=== PATIENT | female | born 1995 | race Caucasian/White ===

== ENCOUNTER 2020-05-25 13:45 | Emergency (ER) | payer OTHER, SELFPAY ==
--- NOTE | ~2020-05-25 | US_ITS ---
EXAMINATION: ULTRASOUND PELVIS, COMPLETE CLINICAL INFORMATION: Severe vaginal bleeding COMPARISON: None TECHNIQUE: Transabdominal and transvaginal imaging of the pelvic viscera performed utilizing grayscale and color Doppler technique. FINDINGS: Uterus normal in size and configuration measuring 8.0 x 3.5 x 4.7 cm. No uterine masses. Endometrial signature is homogeneous and measures 0.4 cm. Cervix contains nabothian cyst but is otherwise unremarkable. Ovaries are normal in size and appearance measuring 3.6 x 2.5 x 2.2 cm on the right and 3.3 x 2.7 x 1.9 cm on the left. No ovarian or adnexal cyst/mass. Small free fluid, normal in a female of reproductive age. US/US pelvic complete IMPRESSION: Unremarkable exam.
--- NOTE | ~2020-05-25 | US_ITS ---
EXAMINATION: ULTRASOUND PELVIS, COMPLETE CLINICAL INFORMATION: Severe vaginal bleeding COMPARISON: None TECHNIQUE: Transabdominal and transvaginal imaging of the pelvic viscera performed utilizing grayscale and color Doppler technique. FINDINGS: Uterus normal in size and configuration measuring 8.0 x 3.5 x 4.7 cm. No uterine masses. Endometrial signature is homogeneous and measures 0.4 cm. Cervix contains nabothian cyst but is otherwise unremarkable. Ovaries are normal in size and appearance measuring 3.6 x 2.5 x 2.2 cm on the right and 3.3 x 2.7 x 1.9 cm on the left. No ovarian or adnexal cyst/mass. Small free fluid, normal in a female of reproductive age. US/US transvaginal IMPRESSION: Unremarkable exam.
[2020-05-25 14:32] VITALS: BP 123/82; PULSE 98; RESP 14; TEMP 37.2; O2SAT 100; BMI 25.7
--- NOTE | 2020-05-25 14:44 | ED_ITS ---
HPI - Female Genitourinary General Chief complaint: Vaginal Bleeding Stated complaint: VAGINAL BLEEDING Time Seen by Provider: 05/25/20 14:15 Source: patient Mode of arrival: ambulatory Limitations: no limitations History of Present Illness HPI Narrative: 24-year-old female , IUD was just removed 2 weeks ago, javier de souza started to have heavy menstrual periods after IUD removal, patient has no pelvic pain or abdominal pain, not feeling dizzy, no chest pain. Patient do not expect to be today. Related Data Allergies Allergy/AdvReac Type Severity Reaction Status Date / Time No Known Allergies Allergy Unverified 11/23/19 17:44 [No Known Allergies*] Review of Systems Review of Systems: All other systems are reviewed and are negative Constitutional: Reports as per HPI and Reports no additional constitutional complaints Eyes: Reports as per HPI and Reports no additional eye complaints Reports system reviewed and no additional complaints, except as documented Cardiovascular: Reports as per HPI and Reports no additional cardiovascular complaints Respiratory: Reports as per HPI and Reports no additional respiratory complaints Gastrointestinal: Reports as per HPI and Reports no additional gastrointestinal complaints Genitourinary: Reports no additional female genitourinary complaints Musculoskeletal: Reports no additional musculoskeletal complaints Skin/Breast: Reports system reviewed and no additional complaints, except as docu Psychiatric: Reports no additional psychiatric complaints Endocrine: Reports no additional endocrine complaints Hematologic/Lymphatic: Reports no additional hematologic/lymphatic complaints Allergic/Immunologic: Reports no additional allergic/immunologic complaints Reports system reviewed and no additional complaints, except as documented and Reports Abnormal speech present [facility] Past Medical History Medical History No known health problems Social History Social History Alcohol intake: never Smoking Status: Never smoker Use of substances other than those prescribed or required for medical reasons: No Advance Directives: Yes Advance Directives Information Provided: Yes Advance Directives on File: No Physical Exam Vital Signs: Vital Signs: Last Vital Signs Temp 98.9 F 05/25/20 14:32 Pulse 81 05/25/20 16:50 Resp 18 05/25/20 16:50 BP 110/74 05/25/20 16:50 Pulse Ox 100 05/25/20 16:50 Body Mass Index 25.7 Vital signs have been reviewed as appeared to be correct. Blood pressure normal. Heart rate normal. Respiration rate normal. Temperature normal. Oxygen saturation normal. Appearance: Alert. Oriented X3. No acute distress. Head: Normal external exam. Normocephalic. Atraumatic. No Christine signs noted. No raccoon eyes noted Eyes: PERRLA. EOMI. Conjunctiva and sclera normal. Eyelids normal. ENT: TM's Normal. Pharynx normal. Uvula midline. Moist mucous membranes. No trismus noted. No drooling noted. No muffled voice noted. Neck: Normal inspection. Neck supple. FROM. No adenopathy. Thyroid Normal. No meningeal signs. No neck mass noted. CVS: Normal heart rate and rhythm. Heart sound normal. No murmurs noted. Pulses normal throughout. Respiratory: No respiratory distress. Painless inspiration. Breath sounds normal. No wheezes/rales/rhonchi noted. Chest nontender. No accessory muscle usage noted or decreased air movement noted. Abdomen: Soft and nontender. Bowel sounds normal in all 4 quadrants. No distention noted. No organomegaly noted. No visible injury noted. Pelvic exam: Few cc of Blood in the vault, no active bleeding, no blood clots, os is closed, no CMT tenderness, no adnexal mass. Back: No CVA tenderness. Full range of motion noted. Skin: Skin warm and dry. Normal skin color. Normal skin turgor. No rashes/lesions/lacerations noted. Extremities: No lower extremity edema. Extremities exhibit normal range of motion. Extremities nontender. Neuro: Oriented X 3. No motor deficit. No sensory deficit. Reflexes normal. Course Course Course Narrative: Assessment and plan. 24-year-old female was menorrhagia after took out IUD 2 weeks ago, patient hemodynamically stable, with unremarkable exam and ultrasound. Will discharge the patient to follow-up with her OBGYN doctor. MDM - Female Genitourinary Lab Data Attestation: I reviewed the patient's lab results. Result diagrams: 05/25/20 15:27 05/25/20 15:27 Labs: Lab Results 05/25/20 05/25/20 05/25/20 Range/Units 15:27 15:27 16:32 WBC 5.3 (4.8-10.8) X10*3/uL RBC 4.37 (4.20-5.50) X10*6/uL Hgb 12.5 (12.0-16.0) g/dl Hct 37.7 (37-47) % MCV 86.3 (80-98) fL MCH 28.6 (27.0-33.0) pg MCHC 33.2 (31.0-35.0) g/dl RDW 12.4 (11.0-16.0) % Plt Count 176 (160-400) X10*3/uL MPV 10.7 (9.4-12.3) fL Immature Gran % (Auto) 0.2 (0.0-0.4) % Neut % (Auto) 65.8 (45-73) % Lymph % (Auto) 23.6 (20-40) % Foster % (Auto) 8.5 (2-11) % Eos % (Auto) 1.5 (0-4) % Baso % (Auto) 0.4 (0-2) % Lymph # (Auto) 1.3 (1.2-4.9) X10*3/uL Foster # (Auto) 0.5 (0.1-1.2) X10*3/uL Eos # (Auto) 0.1 (0.0-0.4) X10*3/uL Baso # (Auto) 0.0 (0.0-0.2) X10*3/uL Abs Immat Gran (auto) 0.01 (0.00-0.03) X10*3/uL Absolute Neuts (auto) 3.5 (2.0-8.3) X10*3/uL Absolute Nucleated RBC 0.000 (0.0-0.012) X10*3/uL Nucleated RBC % (auto) 0.0 (0.0-0.2) /100WBC Sodium 138 (135-145) mmol/L Potassium 4.0 (3.3-5.1) mmol/L Chloride 104 (96-108) mmol/L Carbon Dioxide 28 (22-29) mmol/L Anion Gap 10 L (12-20) BUN 12 (9-16) mg/dL Creatinine 0.90 (0.5-1.4) mg/dL Estim Creat Clear Calc 99.7 Estimated GFR > 60 Random Glucose 71 (60-115) mg/dL Calcium 8.4 (8.4-10.2) mg/dL Urine Color PINK Urine Appearance HAZY Urine pH 6.5 (5.0-8.0) Ur Specific [place] 1.025 (1.005-1.025) Urine Protein TRACE (NEG-TRACE) MG/DL Urine Glucose (UA) NEG (NEG) MG/DL Urine Ketones NEG (NEG) MG/DL Urine Blood 3+ H (NEG) Urine Nitrite NEG (NEG) Ur Leukocyte Esterase NEG (NEG) Urine RBC 15-29 H (0) /HPF Urine WBC 0-2 (0-4) /HPF Ur Squamous Epith Cells 3+ /LPF Ur Renal Epithelial Cell TRACE /LPF Urine Bacteria NONE /LPF Urine Mucus TRACE /LPF Urine Test (NEGATIVE) 05/25/20 Range/Units 16:32 WBC (4.8-10.8) X10*3/uL RBC (4.20-5.50) X10*6/uL Hgb (12.0-16.0) g/dl Hct (37-47) % MCV (80-98) fL MCH (27.0-33.0) pg MCHC (31.0-35.0) g/dl RDW (11.0-16.0) % Plt Count (160-400) X10*3/uL MPV (9.4-12.3) fL Immature Gran % (Auto) (0.0-0.4) % Neut % (Auto) (45-73) % Lymph % (Auto) (20-40) % Foster % (Auto) (2-11) % Eos % (Auto) (0-4) % Baso % (Auto) (0-2) % Lymph # (Auto) (1.2-4.9) X10*3/uL Foster # (Auto) (0.1-1.2) X10*3/uL Eos # (Auto) (0.0-0.4) X10*3/uL Baso # (Auto) (0.0-0.2) X10*3/uL Abs Immat Gran (auto) (0.00-0.03) X10*3/uL Absolute Neuts (auto) (2.0-8.3) X10*3/uL Absolute Nucleated RBC (0.0-0.012) X10*3/uL Nucleated RBC % (auto) (0.0-0.2) /100WBC Sodium (135-145) mmol/L Potassium (3.3-5.1) mmol/L Chloride (96-108) mmol/L Carbon Dioxide (22-29) mmol/L Anion Gap (12-20) BUN (9-16) mg/dL Creatinine (0.5-1.4) mg/dL Estim Creat Clear Calc Estimated GFR Random Glucose (60-115) mg/dL Calcium (8.4-10.2) mg/dL Urine Color Urine Appearance Urine pH (5.0-8.0) Ur Specific [place] (1.005-1.025) Urine Protein (NEG-TRACE) MG/DL Urine Glucose (UA) (NEG) MG/DL Urine Ketones (NEG) MG/DL Urine Blood (NEG) Urine Nitrite (NEG) Ur Leukocyte Esterase (NEG) Urine RBC (0) /HPF Urine WBC (0-4) /HPF Ur Squamous Epith Cells /LPF Ur Renal Epithelial Cell /LPF Urine Bacteria /LPF Urine Mucus /LPF Urine Test NEGATIVE (NEGATIVE) Imaging Data Pelvic ultrasound: Radiologist's impression: Unremarkable exam. Discharge Plan Discharge Clinical Impression: Menorrhagia Patient Disposition: Home, Self-Care Instructions: Menorrhagia (ED) Referrals: Vita Winston MD [Physician] - 2 days Interventions: ED Discharge Assessment Last Done: 05/25/20 18:07 Discharge Date/Time: 05/25/20 18:07
[2020-05-25 15:34] LABS: MANUAL DIFF FLAG NO
[2020-05-25 15:35] LABS: Basophils Percent Auto 0.4 % (0-2); Eosinophils Absolute Auto 0.1 X10*3/uL (0.0-0.4); Eosinophils Percent Auto 1.5 % (0-4); Hematocrit 37.7 % (37-47); Hemoglobin 12.5 g/dl (12.0-16.0); Imm Gran Abs Auto 0.01 X10*3/uL (0.00-0.03); Imm Gran Pct Auto 0.2 % (0.0-0.4); Lymphocytes Absolute Auto 1.3 X10*3/uL (1.2-4.9); Lymphocytes Percent Auto 23.6 % (20-40); Mean Corpuscular HGB Conc 33.2 g/dl (31.0-35.0); Mean Corpuscular Hemoglobin 28.6 pg (27.0-33.0); Mean Corpuscular Volume 86.3 fL (80-98); Mean Platelet Volume 10.7 fL (9.4-12.3); Monocytes Absolute Auto 0.5 X10*3/uL (0.1-1.2); Monocytes Percent Auto 8.5 % (2-11); Neutrophils Absolute Auto 3.5 X10*3/uL (2.0-8.3); Neutrophils Percent Auto 65.8 % (45-73); Platelet Count 176 X10*3/uL (160-400); Red Blood Count 4.37 X10*6/uL (4.20-5.50); Red Cell Distribution Width 12.4 % (11.0-16.0); White Blood Count 5.3 X10*3/uL (4.8-10.8)
[2020-05-25 15:57] VITALS: BP 103/69; BP 106/65; PULSE 76; PULSE 85
[2020-05-25 16:03] LABS: Blood Urea Nitrogen 12 mg/dL (9-16); Calcium 8.4 mg/dL (8.4-10.2); Creatinine Clr Calc Pharmacy 99.7; Estimated Glomerular Filt Rate > 60; Glucose Random 71 mg/dL (60-115)
[2020-05-25 16:16] LABS: Anion Gap 10 (12-20); Carbon Dioxide 28 mmol/L (22-29); Chloride 104 mmol/L (96-108); Sodium 138 mmol/L (135-145)
[2020-05-25 16:44] LABS: Glucose Urine UA NEG (NEG); Leukocyte Esterase Urine NEG (NEG); Nitrite Urine NEG (NEG); PH 6.5 (5.0-8.0); Specific Gravity - Urine 1.025 (1.005-1.025); Urine Blood 3+ (NEG); Urine Ketones NEG (NEG); Urine Protein TRACE MG/DL (NEG-TRACE)
[2020-05-25 16:46] LABS: Appearance Urine HAZY; Color Urine PINK
[2020-05-25 16:49] LABS: UPreg QC Valid YES; Urine Pregnancy NEGATIVE (NEGATIVE)
[2020-05-25 16:50] VITALS: BP 110/74; PULSE 81; RESP 18; O2SAT 100
[2020-05-25 17:03] LABS: Renal Epithelial Cells Urine TRACE /LPF; Squamous Epithelial Cell Urine 3+ /LPF; WBC Urine 0-2 /HPF (0-4)
[2020-05-25 17:04] LABS: Mucus Urine TRACE /LPF
== END 2020-05-25 18:07 | disposition home or self-care (01) ==
PROVIDERS: Emergency Provider Emergency Medicine
DX: N92.0 Excessive and frequent menstruation with regular cycle (principal)
CPT/HCPCS: 36415; 76830; 76856; 80048; 81001; 81025; 85025; 99284

== ENCOUNTER 2020-09-12 02:46 | Emergency (ER) | payer OTHER, SELFPAY ==
[2020-09-12 02:53] VITALS: BP 117/74; PULSE 79; RESP 16; TEMP 37.2; O2SAT 97; BMI 25.0
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
== END 2020-09-12 03:15 | disposition home or self-care (01) ==
PROVIDERS: Emergency Provider Internal Medicine; PCP Physician Assistant Medical
DX: O9A.311 Physical abuse complicating pregnancy, first trimester (principal); S10.93XA Contusion of unspecified part of neck, initial encounter; S70.12XA Contusion of left thigh, initial encounter; S40.021A Contusion of right upper arm, initial encounter; Y04.2XXA Assault by strike against or bumped into by another person, initial encounter; Z3A.01 Less than 8 weeks gestation of pregnancy; Y93.9 Activity, unspecified; Y92.9 Unspecified place or not applicable; Y99.9 Unspecified external cause status
CPT/HCPCS: 99284

== ENCOUNTER 2021-08-09 17:36 | Emergency (ER) | payer OTHER, SELFPAY ==
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
[2021-08-09 17:47] VITALS: BP 112/82; BP 121/84; PULSE 98; RESP 20; TEMP 37.3; O2SAT 99; BMI 26.6
[2021-08-09] MEDS: Ibuprofen 600 MG TABLET PO (18:57)
[2021-08-09] MEDS: HYDROmorphone HCl 2 MG/ML VIAL IM (19:28)
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
[2021-08-09 20:53] LABS: Influenza A PCR NEGATIVE (Negative); Influenza B PCR NEGATIVE (Negative); Resp Syncy Virus RNA Qual PCR NEGATIVE (Negative); SARS COV2 PCR INHOUSE NEGATIVE (Negative)
== END 2021-08-09 22:32 | disposition home or self-care (01) ==
PROVIDERS: Emergency Provider Emergency Medicine
DX: S52.92XA Unspecified fracture of left forearm, initial encounter for closed fracture (principal); S09.90XA Unspecified injury of head, initial encounter; S40.022A Contusion of left upper arm, initial encounter; M79.632 Pain in left forearm; R51.9 Headache, unspecified; M54.2 Cervicalgia; M25.532 Pain in left wrist; V49.40XA Driver injured in collision with unspecified motor vehicles in traffic accident, initial encounter; Y93.9 Activity, unspecified; Y92.410 Unspecified street and highway as the place of occurrence of the external cause; Y99.0 Civilian activity done for income or pay; Z20.822 Contact with and (suspected) exposure to COVID-19; Z79.899 Other long term (current) drug therapy
CPT/HCPCS: 0241U; 70450; 72125; 73090; 73100; 73120; 96372; 99282; 99284; J1170

== ENCOUNTER 2021-08-12 09:04 | Outpatient (REF) | payer OTHER, SELFPAY ==
--- NOTE | ~2021-08-12 | XR_ITS ---
EXAMINATION: XR ELBOW, LEFT CLINICAL INFORMATION: Pain. COMPARISON: Radiograph of the left forearm dated from 08/09/2021. TECHNIQUE: AP, lateral, and oblique views of the left elbow. FINDINGS: Limited evaluation of the lateral view due to incomplete flexion. No acute fractures or malalignment. No significant soft tissue abnormality. XR/XR elbow LT min 3V IMPRESSION: Limited lateral view. However, accounting for these limitations, no significant abnormality is identified.
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
== END 2021-08-12 09:05 | disposition home or self-care (01) ==
LOC: HO.HOSX 09:04
PROVIDERS: Visit Provider Orthopaedic Surgery
DX: S52.502A Unspecified fracture of the lower end of left radius, initial encounter for closed fracture (principal); M25.522 Pain in left elbow; G56.02 Carpal tunnel syndrome, left upper limb; V49.9XXA Car occupant (driver) (passenger) injured in unspecified traffic accident, initial encounter; Y93.9 Activity, unspecified; Y92.410 Unspecified street and highway as the place of occurrence of the external cause; Y99.0 Civilian activity done for income or pay
CPT/HCPCS: 73080; 73110; 99202

== ENCOUNTER → 2021-08-13 09:18 | Outpatient (BNVA) | payer OTHER, SELFPAY | PROVIDERS: Visit Provider Physician Assistant | DX: F07.81 Postconcussional syndrome (principal); M54.2 Cervicalgia; S52.92XA Unspecified fracture of left forearm, initial encounter for closed fracture; S70.12XA Contusion of left thigh, initial encounter; V89.2XXA Person injured in unspecified motor-vehicle accident, traffic, initial encounter | CPT/HCPCS: 99204 ==

== ENCOUNTER 2021-08-14 06:00 | Day surgery (SDC) | payer OTHER, SELFPAY ==
--- NOTE | 2021-08-13 08:49 | HO.ANESPROP2 ---
Documented by User: Jaimie Allen NP 08/13/21 08:50 HPI - Anesthesia Eval Consult details Narrative: 25yo F for Left Radius Distal Fracture ORIF, Carpal Tunnel Release PMFSH Active Problems Active Problems: All Active Problems (Updated 08/12/21 @ 15:52 by Autumn Vincent MD) Acute carpal tunnel syndrome of left wrist (Acute) Distal radius fracture, left (Acute) Past Medical History Medical History No known health problems Surgical History Surgical History (Updated 08/14/21 @ 06:20 by Keely Palomares RN) History of abdominal surgery History of breast augmentation History of eye surgery History of lumpectomy Hx of wisdom tooth extraction Social History Social History Alcohol intake: never Patient Tobacco Use Status: Never used Tobacco Meds Allergies Allergy/AdvReac Type Severity Reaction Status Date / Time No Known Allergies Allergy Verified 08/12/21 14:09 [No Known Allergies*] Exam Exam Date and Time: August 13, 2021 0849 Assessment and Plan Assessment Anesthesia Assessment: Chart Reviewed Documented by User: Maicol Ellis MD 08/14/21 16:34 PMFSH Past Medical History Medical History No known health problems Family History Family history of problems with anesthesia: No Surgical History Surgical History (Updated 08/14/21 @ 06:20 by Keely Palomares RN) History of abdominal surgery History of breast augmentation History of eye surgery History of lumpectomy Hx of wisdom tooth extraction History of Problems with Anesthesia: No Social History Social History Alcohol intake: never Patient Tobacco Use Status: Never used Tobacco Meds Allergies Allergy/AdvReac Type Severity Reaction Status Date / Time No Known Allergies Allergy Verified 08/12/21 14:09 [No Known Allergies*] Exam Airway Mallampati Class: II TM Dist: >3cm Neck ROM: Full Loose/Missing/Broken Teeth: Yes Heart: S1,S2 Lungs: b/l breath sounds Assessment and Plan Assessment Anesthesia Assessment: Anesthesia Plan Discussed Final Anesthetic Review Family History of Problems with Anesthesia: No History of Problems with Anesthesia: No NPO: Yes ASA Class: I Final Preanesthetic Review: Meds/Allgs Chart Reviewed, Consent Obtained/Reviewed and Anes Risks/Benef Reviewed Patient Risk: Intermediate Procedure Risk: Intermediate Anesthetic Plan Anesthetic Plan: GA and Regional Block Disposition: Standard PACU
[2021-08-14] VITALS (9 sets, daily range): BP systolic 105–136; BP diastolic 63–79; PULSE 62–88; RESP 10–17; TEMP 36.6–37.7; O2SAT 93–98; BMI 26.6
--- NOTE | ~2021-08-14 | FL_ITS ---
EXAMINATION: XR FLUOROSCOPY WITH IMAGES CLINICAL INFORMATION: OR internal fixation distal radius. COMPARISON: 08/12/2021 TECHNIQUE: Fluoroscopy performed by Dr. Autumn Vincent. Fluoroscopy time: 50.48 minutes DAP: 1.14 mGycm2 Images: 8 FINDINGS: Images demonstrate plate and screw fixation for intra-articular fracture of the distal left wrist. There appears be some improvement of radiocarpal joint angulation with what appears be neutral angulation at this time. Minimally displaced radial styloid fracture seen. Avulsion injury of the distal ulnar styloid is seen. FL/FL guidance in OR IMPRESSION: Intraoperative fluoroscopy used for OR internal fixation of comminuted distal right radial and ulnar styloid fracture.
[2021-08-14 06:20] LABS: UPreg QC Valid YES; Urine Pregnancy NEGATIVE (NEGATIVE)
[2021-08-14] MEDS: Lactated Ringers 1,000 ML 100 ML IVCONT (06:48)
--- NOTE | 2021-08-14 07:47 | MHC.SHP ---
Pre-Procedural Eval Section A Date of Service: 08/14/21 The patient is an INPATIENT: No Changes since office visit: No Cold of Flu in the past 2 weeks, No New Medical Problems, No Changes in Medication and No Patient answered all questions The History & Physical has been completed within 30 days and I have reviewed it.: Yes Section B Chief Complaint: Carpal tunnel syndrome, distal radius fracture Allergies: Allergies Allergy/AdvReac Type Severity Reaction Status Date / Time No Known Allergies Allergy Verified 08/12/21 14:09 [No Known Allergies*] Plan I have reviewed the history and physical and performed a pertinent physical examination on my patient. No changes have occurred unless specified.
--- NOTE | 2021-08-14 07:48 | P.OP_ITS ---
Operative Note Operative Note Date of Service: 08/14/21 Narrative: Operative Note Narrative: Preop diagnosis: Left Distal radius fracture, comminuted intra-articular Postop diagnosis: Same Procedure: Left Distal radius fracture open reduction internal fixation, 3 part Surgeon: Autumn Vincent MD Anesthesia: General anesthesia plus regional block Findings: Comminuted intra-articular distal radius fracture Implants: A 3 hole Accu Med volar locking plate, with 5x 2.3 mm locking pegs/screws, and 3 3.5 mm cortical screws, 1x 0.054 k-wire Tourniquet time: 70 minutes EBL: 5.0 ml Specimen: None Drains: None Complications: None Disposition: Brought to the recovery room in stable condition Plan: Follow-up in 10-14 days for wound check, suture removal and postop radiographs Anticipate removal of K-wire at 2 week visit The patient will be placed in either a short-arm cast . Encouraged no lifting of anything heavier than a cell phone. Please encourage active and passive range of motion of the digits. Follow-up at 4-5 weeks postop for repeat radiographs. Indications: The patient is a 25 year old woman with a comminuted intra- articular distal radius fracture . The risks and benefits of operative treatment, including but not limited to risk of damage to blood vessels, nerves, tendons, infection, recurrence, persistent pain or numbness, incomplete resolution of preoperative symptoms, or need for further surgery were discussed with the patient and they wished to proceed with surgery. Procedure: Once consent was obtained patient was brought back to the operating suite and placed in the operating table in a supine position. A regional block was performed by the anesthesia team. Perioperative antibiotics and anesthesia was administered by the anesthesia team. A tourniquet was applied to the proximal aspect of the left upper extremity and the limb was prepped and draped in a standard surgical fashion. The limb was elevated exsanguinated with Esmarch bandage and the tourniquet inflated to 250 mm of mercury for a total tourniquet time of 70 minutes. The FluoroScan was used throughout the case to assess our reduction, and facilitate implant placement. A gentle closed reduction was 1st performed on the patient's left distal radius fracture. Was assessed radiographically before proceeding with the reduction internal fixation. I then made an 8 cm longitudinal incision over the distal aspect of the flexor carpi radialis tendon. The incision was made through the skin to the subcutaneous tissue using a 15. Blade. Then carefully dissected down to flexor carpi radialis tendon she tenotomy scissors. The FCR tendon sheath was then incised longitudinally using tenotomy scissors under direct visualization. The FCR tendon was then retracted ulnarly. I then made a longitudinal incision in the volar forearm fascia thro ugh the floor of FCR tendon sheath using tenotomy scissors under direct visualization. I identified the interval between the radial artery and the flexor tendons. This interval was developed further with my index finger, releasing some of the muscular fibers of the flexor pollicis longus. A dull weatlander retractor was then placed. I then created an ulnarly based flap of the pronator quadratus by releasing the radial and distal edges using a 15. Blade. A [place] elevator was used to elevate the pronator quadratus from the volar surface of the distal radius. This then revealed to us our distal radius fracture. An open reduction was then performed on our distal radius fracture. I then placed a short standard 3 hole Accu Med volar locking plate on the volar surface of the distal radius. I placed a single K-wire through the distal aspect of the plate and into the distal radius. This was assessed using fluoroscopic images. I was satisfied with the placement of our plate. I then placed 5x 2.3 mm locking screws/pegs in the distal aspect of the plate and distal radius by 1st drilling bicortically with a 1.8 mm drill bit, measuring with a depth gauge, and placing the appropriate length locking screws/pegs. The placement of our plate and screws was then assessed again using fluoroscopic images. The once satisfied with the placement of the volar locking plate and screws on the distal aspect of the distal radius, the plate was then reduced to the shaft of the radius. I then placed 3 3.5 mm cortical screws to the proximal aspect of the plate and into the shaft of the radius. This was done by 1st drilling bicortically with a 2.8 mm drill bit, measuring with a depth gauge, and placing the appropriate length screw. She had a transverse fracture that was very distal creating a radial styloid fragment. I then placed a single 0.054 K-wire retrograde through the tip of the radial styloid, across the fracture to the ulnar cortex of the shaft of the radius. Final radiographs were then obtained. The DRUJ was assessed and found to be stable on exam. I was satisfied with our reduction and placement of all implants. At this point the wound was irrigated with normal saline. The pronator quadratus was reduced back over the volar locking plate using some 3-0 Vicryl suture material. The tourniquet was then deflated and hemostasis was obtained with a brief period of local pressure and bipolar monopolar electrocautery. The subcutaneous layer was then reapproximated using some 4-0 Vicryl suture, and the skin edges were reapproximated using some 5 0 Prolene suture. The wound was then infiltrated with some 1% lidocaine with epinephrine postop pain control. A sterile dressing and a short dorsal splint allowing for active flexion and extension of the digits was applied. The patient appears to have tolerated the procedure well and with no complications. All digits were well vascularized conclusion of the case.
[2021-08-14] MEDS: oxyCODONE HCl Immed Release 5 MG TABLET PO (11:22)
--- NOTE | 2021-08-14 15:10 | W.PM.OPN ---
Operative Note Operative Note Date of Service: 08/14/21
== END 2021-08-14 12:53 | disposition home or self-care (01) ==
PROVIDERS: Nurse Practitioner; Visit Provider Orthopaedic Surgery
PROC: (CPT 25609; principal; 2021-08-14 07:30)
PROC: (CPT 64721; 2021-08-14 07:30)
DX: S52.572A Other intraarticular fracture of lower end of left radius, initial encounter for closed fracture (principal); G56.02 Carpal tunnel syndrome, left upper limb; V89.2XXA Person injured in unspecified motor-vehicle accident, traffic, initial encounter; Y93.89 Activity, other specified; Y92.89 Other specified places as the place of occurrence of the external cause; Y99.0 Civilian activity done for income or pay
CPT/HCPCS: 25609; 64721; 81025; C1713; C1769; J0690; J1100; J1885; J2250; J2405; J2550; J2795; J3010

== ENCOUNTER 2021-08-27 08:26 | Outpatient (REF) | payer OTHER, SELFPAY ==
--- NOTE | ~2021-08-27 | XR_ITS ---
EXAMINATION: XR WRIST, LEFT CLINICAL INFORMATION: Left wrist pain. COMPARISON: 08/14/2021 and 08/12/2021. TECHNIQUE: PA, lateral, and oblique views of the left wrist. FINDINGS: Since the previous study, there has been intraoperative surgical repair of a comminuted intra-articular fracture of the distal left radius. Sideplate and screw fixation is present as well as a pin through the radial styloid fracture fragment and distal radius. There appears to be anatomic alignment with return of a neutral angulation of the radiocarpal joint. Nondisplaced ulnar styloid avulsion fracture evident. XR/XR wrist LT min 3V IMPRESSION: Status post intraoperative repair of intra-articular comminuted fracture of the distal left radius.
== END 2021-08-27 08:27 | disposition home or self-care (01) ==
LOC: HO.HOSX 08:26
PROVIDERS: Visit Provider Orthopaedic Surgery
DX: M25.532 Pain in left wrist (principal)
CPT/HCPCS: 73110

== ENCOUNTER 2021-09-09 09:35 | Outpatient (REF) | payer OTHER, SELFPAY ==
--- NOTE | ~2021-09-09 | XR_ITS ---
EXAMINATION: XR WRIST, LEFT CLINICAL INFORMATION: Left wrist pain. COMPARISON: 08/27/2021 and 08/12/2021 TECHNIQUE: PA, lateral, and oblique views of the left wrist. FINDINGS: Status post ORIF of a comminuted intra-articular fracture of the distal left radius. Sideplate and screw fixation is present as well as a pin through the radial styloid fracture fragment and distal radius. Alignment is unchanged. There appears to be anatomic alignment with return of a neutral angulation of the radiocarpal joint. Minimally displaced ulnar styloid avulsion fracture evident. XR/XR wrist LT min 3V IMPRESSION: Stable examination.
== END 2021-09-09 09:36 | disposition home or self-care (01) ==
LOC: HO.HOSX 09:35
PROVIDERS: Visit Provider Orthopaedic Surgery
DX: M25.532 Pain in left wrist (principal)
CPT/HCPCS: 73110

== ENCOUNTER → 2021-09-10 14:27 | Outpatient (BNVA) | payer OTHER, SELFPAY | PROVIDERS: Visit Provider Physician Assistant | DX: S16.1XXD Strain of muscle, fascia and tendon at neck level, subsequent encounter (principal); S39.012D Strain of muscle, fascia and tendon of lower back, subsequent encounter; V89.0XXD Person injured in unspecified motor-vehicle accident, nontraffic, subsequent encounter; Z47.89 Encounter for other orthopedic aftercare; Z98.1 Arthrodesis status | CPT/HCPCS: 99213 ==

== ENCOUNTER 2021-10-07 10:13 | Outpatient (REF) | payer OTHER, SELFPAY ==
--- NOTE | ~2021-10-07 | XR_ITS ---
EXAMINATION: XR WRIST, LEFT CLINICAL INFORMATION: Pain in left wrist. COMPARISON: Left wrist 09/09/2021. TECHNIQUE: PA, lateral, and oblique views of the left wrist. FINDINGS: There is a volar plate and screws stabilizing an old distal radial fracture. A solitary pin seen previously along the distal radius has been removed. No acute fracture is seen. There is diffuse osteopenia. The soft tissues are unremarkable. XR/XR wrist LT min 3V IMPRESSION: No change in the volar plate and screws along the distal radius from the healing fracture. The solitary pin seen in the distal radius has been removed. There is diffuse osteopenia. No soft tissue swelling is seen.
== END 2021-10-07 10:14 | disposition home or self-care (01) ==
LOC: HO.HOSX 10:13
PROVIDERS: Visit Provider Orthopaedic Surgery
DX: S52.502A Unspecified fracture of the lower end of left radius, initial encounter for closed fracture (principal); M25.632 Stiffness of left wrist, not elsewhere classified; G56.02 Carpal tunnel syndrome, left upper limb
CPT/HCPCS: 73110; 99212

== ENCOUNTER → 2021-11-05 11:19 | Outpatient (BNVA) | payer OTHER, SELFPAY | PROVIDERS: Visit Provider Physician Assistant | DX: F07.81 Postconcussional syndrome (principal); R51.9 Headache, unspecified; M54.2 Cervicalgia; M54.9 Dorsalgia, unspecified | CPT/HCPCS: 99214 ==

== ENCOUNTER → 2021-11-12 14:52 | Outpatient (BNVA) | payer OTHER, SELFPAY | PROVIDERS: Visit Provider Orthopaedic Surgery | DX: S52.502D Unspecified fracture of the lower end of left radius, subsequent encounter for closed fracture with routine healing (principal); M25.632 Stiffness of left wrist, not elsewhere classified | CPT/HCPCS: 99212 ==

== ENCOUNTER 2021-11-26 14:24 | Outpatient (REF) | payer OTHER, SELFPAY ==
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
== END 2021-11-26 14:25 | disposition home or self-care (01) ==
LOC: HO.MRI 14:24
PROVIDERS: Visit Provider Internal Medicine
DX: M54.50 Low back pain, unspecified (principal); M54.2 Cervicalgia
CPT/HCPCS: 72141; 72148

== ENCOUNTER 2021-12-01 11:00 | Outpatient (RCR) | payer OTHER, SELFPAY ==
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
--- NOTE | 2022-01-16 10:29 | MHC.PT.DC ---
[facility] [place] Office [place] Office [place] Office [address] Jose Miguel Contreras [address] [phone] F: [phone] F: [phone] F: [phone] F: [phone] Physical Therapy Discharge Report Diagnosis: cervical strain, L leg hematoma Date of Surgery: Date of Evaluation: 09/04/21 Date of Discharge: 01/16/22 Treatments to Date: 11 Cancellations to Date: 0 No Shows to Date: 0 Discharge Status: Improved Function Independent with HEP Discharge Summary: Pt had made good gains with ROM and strength, however she continues with high levels of pain. At this time she is I with HEP and to continue with HEP. Electronically signed by: Acacia Trotter PT Please sign and return to therapist. Thank you for your referral.
== END 2022-01-16 10:29 | disposition home or self-care (01) ==
LOC: HO.PT 11:00
PROVIDERS: Visit Provider Physician Assistant
DX: S16.1XXD Strain of muscle, fascia and tendon at neck level, subsequent encounter (principal); M54.50 Low back pain, unspecified
CPT/HCPCS: 97110; 97140; 97162; 97530

== ENCOUNTER 2021-12-02 11:00 | Outpatient (RCR) | payer OTHER, SELFPAY ==
--- NOTE | 2021-11-12 11:16 | MHC.OT.OP ---
[address] [phone] F: [phone] Occupational Therapy Progress Note Diagnosis: S/P left ORIF DR El S/P left CTR Date of Surgery: 08/14/21 Date of Evaluation: 09/18/21 Treatments to Date: 12 Cancellations to Date: 0 No Shows to Date: Subjective: Pt reports exercising all the time I'm using it more.. its uncomfortable Pain Score: 0 Pain Location: Left wrist and hand intermittent pain Objective Measures: 11/12/21 Index 1 cm to palm Wrist ext/flex 40/30 pro/sup 55/55 Gross Grasp R 45lb L 2lb Status: Assessment: Slow improving ROM and function with left dominant hand and wrist Plateau in wrist flexion over past few weeks.. No change in plate fitter strength , limited index tendon glide. Pt is able to demonstrate her HEP at low intensity.. May benefit from a dynamic flexion orthosis and inc intensity for ther ex. Short Term Goals: Dec c/o pain to < 3/10 at rest MET Demo proper tech with HEP and scar massage met MCPj flex to >75 deg MET PIPj flex to > 90 deg MET Supintion to > 25 deg MET Wrist ext to > 30 deg MET Functional Dexterity Test to moderately functional MET Senior Care Goals: Indep with HEP Wrist ext to >60 deg Supination to > 60 deg Ulnar dev to > 20 deg Asparagus Cutter to > 40 lb Tolerate partial wt bearing on left hand Demo safe lift floor to waist > 25 lb Frequency and Duration: The patient will be seen 2x wk x 4 wks Treatment Plan: Therapeutic Exercise Therapeutic Activity Home Exercise Program Splinting Patient Education Ultrasound MHP Joint Mobilization Electronically Signed By: Lady Bustamante OT CHT CLT Reviewed/agree with student documentation: Therapist:
--- NOTE | 2022-01-19 08:39 | MHC.OT.DC ---
[address] [phone] F: [phone] Occupational Therapy Discharge Note Provider: Autumn Vincent Diagnosis: S/P left ORIF DR El S/P left CTR Date of Surgery: 08/14/21 Date of Evaluation: 09/18/21 Date of Discharge: 01/19/22 Treatments to Date: 15 Cancellations to Date: 3 No Shows to Date: 1 Discharge Status: Discharge Summary: Pt not seen since her MD follow up on 12/10/21. Last visit pt with very stiff wrist ~ 45 deg extension and ~15 deg flex. Electronically Signed By: Lady Bustamante OT CHT CLT Reviewed/agree with student documentation: N/A Therapist: Please Sign and return to therapist, thank you for your referral.
== END 2022-01-19 08:39 | disposition home or self-care (01) ==
LOC: HO.OT 11:00
PROVIDERS: Visit Provider Orthopaedic Surgery
DX: S52.502A Unspecified fracture of the lower end of left radius, initial encounter for closed fracture (principal); G56.02 Carpal tunnel syndrome, left upper limb
CPT/HCPCS: 29125; 97014; 97035; 97110; 97140; 97166; 97530

== ENCOUNTER → 2021-12-02 11:41 | Outpatient (BNVA) | payer OTHER, SELFPAY | PROVIDERS: Visit Provider Physician Assistant | DX: S16.1XXD Strain of muscle, fascia and tendon at neck level, subsequent encounter (principal); S39.012D Strain of muscle, fascia and tendon of lower back, subsequent encounter; V89.2XXD Person injured in unspecified motor-vehicle accident, traffic, subsequent encounter | CPT/HCPCS: 99214 ==

== ENCOUNTER → 2021-12-10 13:14 | Outpatient (BNVA) | payer OTHER, SELFPAY | PROVIDERS: Visit Provider Orthopaedic Surgery | DX: S52.502D Unspecified fracture of the lower end of left radius, subsequent encounter for closed fracture with routine healing (principal); G56.02 Carpal tunnel syndrome, left upper limb; M25.632 Stiffness of left wrist, not elsewhere classified | CPT/HCPCS: 99212 ==

== ENCOUNTER → 2021-12-19 10:34 | Outpatient (BNVA) | payer OTHER, SELFPAY | PROVIDERS: Visit Provider Physician Assistant | DX: M54.2 Cervicalgia (principal); M54.50 Low back pain, unspecified | CPT/HCPCS: 99203 ==

== ENCOUNTER → 2022-01-21 10:44 | Outpatient (BNVA) | payer OTHER, SELFPAY | PROVIDERS: Visit Provider Physician Assistant | DX: S52.502D Unspecified fracture of the lower end of left radius, subsequent encounter for closed fracture with routine healing (principal); V89.0XXD Person injured in unspecified motor-vehicle accident, nontraffic, subsequent encounter; G56.02 Carpal tunnel syndrome, left upper limb; M25.632 Stiffness of left wrist, not elsewhere classified | CPT/HCPCS: 99212; 99213 ==

== ENCOUNTER → 2022-02-04 10:30 | Outpatient (BNVA) | payer OTHER, SELFPAY | PROVIDERS: Visit Provider Anesthesiology | DX: M47.816 Spondylosis without myelopathy or radiculopathy, lumbar region (principal); M47.812 Spondylosis without myelopathy or radiculopathy, cervical region | CPT/HCPCS: 99202 ==

== ENCOUNTER → 2022-02-11 10:50 | Outpatient (BNVA) | payer OTHER, SELFPAY | PROVIDERS: Visit Provider Physician Assistant | DX: Z48.89 Encounter for other specified surgical aftercare (principal) | CPT/HCPCS: 99213 ==

== ENCOUNTER 2022-03-24 06:38 | Outpatient (REF) | payer OTHER, SELFPAY ==
--- NOTE | ~2022-03-24 | FL_ITS ---
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 COMPARISON: None TECHNIQUE: Fluoroscopy Supervised By: Dr. Joss Orta. Fluoroscopy Time: 0.4 minutes. Cumulative Dose: 5.08 mGy. DAP: 1.38 Gycm2. Images: 4. FINDINGS: Images demonstrate needles and contrast along the left lateral aspect of L3 through S1. FL/FL guidance in treatment room IMPRESSION: Intraoperative fluoroscopy for pain management procedure.
== END 2022-03-24 06:39 | disposition home or self-care (01) ==
LOC: CF 06:38
PROVIDERS: Visit Provider Anesthesiology
DX: M47.816 Spondylosis without myelopathy or radiculopathy, lumbar region (principal); M47.812 Spondylosis without myelopathy or radiculopathy, cervical region
CPT/HCPCS: 64493; 64494; 99212

== ENCOUNTER 2022-03-30 14:53 | Emergency (ER) | payer OTHER, SELFPAY ==
[2022-03-30] VITALS (8 sets, daily range): BP systolic 96–135; BP diastolic 47–81; PULSE 97–146; RESP 16–20; TEMP 36.6–39.1; O2SAT 97–99; BMI 24.3
--- NOTE | ~2022-03-30 | XR_ITS ---
EXAMINATION: XR CHEST CLINICAL INFORMATION: Chest pain COMPARISON: Chest radiographs 09/26/2020, 08/31/2019 TECHNIQUE: Portable upright AP view of the chest was obtained. FINDINGS: No pneumothorax, pleural reaction, or effusion. No lobar or segmental airspace consolidation or definite groundglass opacity. There is subtle increased attenuation bilateral lower zones consistent with overlying soft tissues. No air bronchograms. The heart is normal in size. The vascularity is normal. The hilar and mediastinal contours are unremarkable. XR/XR chest 1V IMPRESSION: Unremarkable examination.
--- NOTE | 2022-03-30 14:55 | ECG_ITS ---
Test Reason : chest pain Blood Pressure : / mmHG Vent. Rate : 124 BPM Atrial Rate : 124 BPM P-R Int : 130 ms QRS Dur : 094 ms QT Int : 332 ms P-R-T Axes : 065 004 057 degrees QTc Int : 476 ms Sinus tachycardia Incomplete right bundle branch block Borderline ECG When compared to the previous EKG of 21 august 2017, rate increased Referred By: Generic ED Physician Electronically Signed By:CORINA HUNTER
--- NOTE | 2022-03-30 15:03 | ED.GENADULT ---
HPI - General Adult General Chief complaint: Chest Pain <JAKE Villa - Last Filed: 03/30/22 15:05> Stated complaint: Chest pain/Vomiting blood <JAKE Villa - Last Filed: 03/30/22 15:05> Time Seen by Provider: 03/30/22 15:41 <JAKE Villa - Last Filed: 03/30/22 15:05> Related Data Home medications: Home Medications Medication Instructions Recorded Confirmed levothyroxine 25 mcg tablet 25 mcg PO DAILY 11/12/21 Previous Rx's Medication Instructions Recorded ibuprofen 600 mg tablet 600 mg PO Q6-8H PRN pain #40 tabs 08/14/21 ondansetron 4 mg disintegrating 4 mg PO Q6H PRN nausea and 03/30/22 tablet vomiting #8 tabs <JAKE Villa - Last Filed: 03/30/22 15:05> Allergies/adverse reactions: Allergies Allergy/AdvReac Type Severity Reaction Status Date / Time No Known Allergies Allergy Verified 03/30/22 15:04 [No Known Allergies*] <JAKE Villa - Last Filed: 03/30/22 15:05> [facility] Past Medical History Medical History: Medical History (Updated 03/30/22 @ 18:08 by Shin Lala MD) Carpal tunnel syndrome No known health problems <JAKE Villa - Last Filed: 03/30/22 15:05> Surgical History: Surgical History History of abdominal surgery History of breast augmentation History of eye surgery History of lumpectomy Hx of wisdom tooth extraction <JAKE Villa - Last Filed: 03/30/22 15:05> Social History Social History: Social History (Updated 03/24/22 @ 10:06 by NAYLA Brandt) Alcohol intake: never Patient Tobacco Use Status: Never used Tobacco Smoked in Last 30 Days: No Use of substances other than those prescribed or required for medical reasons: No Advance Directives: No Advance Directives Information Provided: Yes Patient : No Current occupational status: unemployed Current occupation: left hand <JAKE Villa - Last Filed: 03/30/22 15:05> Physical Exam ED Vital Signs: Vital Signs - 24 hr 03/30/22 15:01 03/30/22 15:38 03/30/22 15:56 Temperature 97.8 F 102.3 F H Pulse Rate 128 H 113 H Pulse Rate [Left Apical] 105 H Respiratory Rate 18 20 Blood Pressure 135/81 120/81 Pulse Oximetry 98 99 Oxygen Delivery Method Room Air Room Air 03/30/22 18:00 03/30/22 20:34 03/30/22 20:57 Temperature 100.4 F 98.7 F 100.2 F Pulse Rate 146 H 101 H 120 H Pulse Rate [Left Apical] Respiratory Rate 16 18 16 Blood Pressure 106/70 96/47 L 98/55 L Pulse Oximetry 98 97 98 Oxygen Delivery Method Room Air Room Air Room Air 03/30/22 20:01 03/30/22 21:52 Temperature 100.1 F Pulse Rate 110 H 97 Pulse Rate [Left Apical] Respiratory Rate 16 Blood Pressure 110/67 Pulse Oximetry 98 Oxygen Delivery Method Room Air BMI result Body Mass Index 24.3 <JAKE Villa - Last Filed: 03/30/22 15:05> Vital Signs - 24 hr 03/30/22 15:01 03/30/22 15:38 03/30/22 15:56 Temperature 97.8 F 102.3 F H Pulse Rate 128 H 113 H Pulse Rate [Left Apical] 105 H Respiratory Rate 18 20 Blood Pressure 135/81 120/81 Pulse Oximetry 98 99 Oxygen Delivery Method Room Air Room Air 03/30/22 18:00 03/30/22 20:34 03/30/22 20:57 Temperature 100.4 F 98.7 F 100.2 F Pulse Rate 146 H 101 H 120 H Pulse Rate [Left Apical] Respiratory Rate 16 18 16 Blood Pressure 106/70 96/47 L 98/55 L Pulse Oximetry 98 97 98 Oxygen Delivery Method Room Air Room Air Room Air 03/30/22 20:01 03/30/22 21:52 Temperature 100.1 F Pulse Rate 110 H 97 Pulse Rate [Left Apical] Respiratory Rate 16 Blood Pressure 110/67 Pulse Oximetry 98 Oxygen Delivery Method Room Air BMI result Body Mass Index 24.3 <Shin Lala MD - Last Filed: 03/30/22 22:49> Course Course Course Narrative: RME - 26 yo female presenting with chest pain and headache that started yesterday along with N/V and abdominal pain. Vomitus with blood. Unable to tolerate any PO. Tachycardic to 140 in triage but appears well. Labs, CXR and swabs ordered. EKG already done. To go to treatment room for further evaluation. <JAKE Villa - Last Filed: 03/30/22 15:05> Medications Administered Discontinued Medications Generic Name Dose Route Start Last Admin Trade Name Freq PRN Reason Stop Dose Admin Acetaminophen 650 mg 03/30/22 17:29 03/30/22 18:35 Acetaminophen 325 Mg Tablet PO 03/30/22 17:30 650 mg ONCE ONE Administration Sodium Chloride 1,000 mls @ 999 mls/hr 03/30/22 16:00 03/30/22 17:00 Ns IV 03/30/22 17:00 Infused .Q1H1M JOAO Infusion Sodium Chloride 1,000 mls @ 999 mls/hr 03/30/22 18:45 03/30/22 19:50 Ns IV 03/30/22 19:45 Infused .Q1H1M JOAO Infusion Sodium Chloride 1,000 mls @ 999 mls/hr 03/30/22 21:00 03/30/22 21:03 Ns IV 03/30/22 22:00 999 mls/hr .Q1H1M JOAO Administration Ketorolac Tromethamine 15 mg 03/30/22 22:24 03/30/22 22:32 Ketorolac Tromethamine 15 Mg/Ml Vial IVPUSH 03/30/22 22:25 15 mg ONCE ONE Administration Lorazepam 1 mg 03/30/22 22:24 03/30/22 22:32 Lorazepam 2 Mg/Ml Vial IVPUSH 03/30/22 22:25 1 mg ONCE ONE Administration Ondansetron HCl 4 mg 03/30/22 15:47 03/30/22 15:53 Ondansetron Hcl 4 Mg/2 Ml Vial IVPUSH 03/30/22 15:48 4 mg ONCE ONE Administration <JAKE Villa - Last Filed: 03/30/22 15:05> Medications Administered Discontinued Medications Generic Name Dose Route Start Last Admin Trade Name Freq PRN Reason Stop Dose Admin Acetaminophen 650 mg 03/30/22 17:29 03/30/22 18:35 Acetaminophen 325 Mg Tablet PO 03/30/22 17:30 650 mg ONCE ONE Administration Sodium Chloride 1,000 mls @ 999 mls/hr 03/30/22 16:00 03/30/22 17:00 Ns IV 03/30/22 17:00 Infused .Q1H1M JOAO Infusion Sodium Chloride 1,000 mls @ 999 mls/hr 03/30/22 18:45 03/30/22 19:50 Ns IV 03/30/22 19:45 Infused .Q1H1M JOAO Infusion Sodium Chloride 1,000 mls @ 999 mls/hr 03/30/22 21:00 03/30/22 21:03 Ns IV 03/30/22 22:00 999 mls/hr .Q1H1M JOAO Administration Ketorolac Tromethamine 15 mg 03/30/22 22:24 03/30/22 22:32 Ketorolac Tromethamine 15 Mg/Ml Vial IVPUSH 03/30/22 22:25 15 mg ONCE ONE Administration Lorazepam 1 mg 03/30/22 22:24 03/30/22 22:32 Lorazepam 2 Mg/Ml Vial IVPUSH 03/30/22 22:25 1 mg ONCE ONE Administration Ondansetron HCl 4 mg 03/30/22 15:47 03/30/22 15:53 Ondansetron Hcl 4 Mg/2 Ml Vial IVPUSH 03/30/22 15:48 4 mg ONCE ONE Administration <Shin Lala MD - Last Filed: 03/30/22 22:49> Medical Decision Making Medical Decision Making MDM Narrative: Patient with a likely viral syndrome. Patient has had chest pain since yesterday, yesterday had had headache which had resolved today. Patient has had vomiting since last night and vomited many times. Patient had a fever here to 102 was tachycardic. Patient was given normal saline 1 L IV as well as Zofran formalin for g IV, acetaminophen 650 mg p.o.. Patient defervesced but was still tachycardic and hypertensive the standing, was given 2 L of normal saline. Her blood pressure was still in the 90s she still had orthostatic tachycardia, was given a 3 L normal saline. Blood pressure improved to 110 systolic with a heart rate in the 90s. Patient complained of some headache and was given Toradol 15 mg IV, lorazepam 1 mg IV. Patient has no evidence of bacterial infection, has a negative chest x-ray, negative urinalysis, no clinical evidence of meningitis, benign abdominal examination. <Shin Lala MD - Last Filed: 03/30/22 22:49> Differential Diagnosis Differential Diagnoses: The differential diagnosis associated with the presentation includes <Shin Lala MD - Last Filed: 03/30/22 22:49> Influenza, COVID, other viral syndrome, pneumonia, pyelonephritis, appendicitis. <Shin Lala MD - Last Filed: 03/30/22 22:49> Admission/Observation Consideration of admission/observation: Escalation of care including admission/observation considered <Shin Lala MD - Last Filed: 03/30/22 22:49> Lab Data MDM Lab Attestation statement: I reviewed the patient's lab results. <Shin Lala MD - Last Filed: 03/30/22 22:49> Result Diagrams: 03/30/22 15:43 03/30/22 15:43 <JAKE Villa - Last Filed: 03/30/22 15:05> Labs: Lab Results 03/30/22 03/30/22 03/30/22 Range/Units 15:43 15:43 15:43 WBC 8.6 (4.8-10.8) X10*3/uL RBC 4.95 (4.20-5.50) X10*6/uL Hgb 13.4 (12.0-16.0) g/dl Hct 40.1 (37.0-47.0) % MCV 81.0 (80.0-98.0) fL MCH 27.1 (27.0-33.0) pg MCHC 33.4 (31.0-35.0) g/dl RDW 12.8 (11.0-16.0) % Plt Count 173 (160-400) X10*3/uL MPV 10.6 (9.4-12.3) fL Immature Gran % (Auto) 0.3 (0.0-0.4) % Neut % (Auto) 89.8 H (45-73) % Lymph % (Auto) 5.1 L (20-40) % [place] % (Auto) 4.5 (2-11) % Eos % (Auto) 0.1 (0-4) % Baso % (Auto) 0.2 (0-2) % Lymph # (Auto) 0.4 L (1.2-4.9) X10*3/uL [place] # (Auto) 0.4 (0.1-1.2) X10*3/uL Eos # (Auto) 0.0 (0.0-0.4) X10*3/uL Baso # (Auto) 0.0 (0.0-0.2) X10*3/uL Abs Immat Gran (auto) 0.03 (0.00-0.03) X10*3/uL Absolute Neuts (auto) 7.7 (2.0-8.3) x10*3/uL Absolute Nucleated RBC 0.000 (0.0-0.012) X10*3/uL Nucleated RBC % (auto) 0.0 (0.0-0.2) /100WBC PT (10.0-13.1) SEC INR (0.9-1.1) APTT (26.0-36.4) SEC Sodium 140 (135-145) mmol/L Potassium 4.0 (3.3-5.1) mmol/L Chloride 106 (96-108) mmol/L Carbon Dioxide 25 (22-29) mmol/L Anion Gap 13 (12-20) BUN 14 (9-16) mg/dL Creatinine 0.79 (0.5-1.4) mg/dL Estim Creat Clear Calc 106.9 Estimated GFR > 60 Random Glucose 91 (60-115) mg/dL Calcium 8.7 (8.4-10.2) mg/dL Magnesium 1.7 (1.6-2.6) mg/dL Total Bilirubin 2.0 H (0.0-1.0) mg/dL Direct Bilirubin 0.6 H (0.0-0.5) mg/dL AST 27 (5-31) U/L ALT 29 (0-31) U/L Alkaline Phosphatase 83 (39-117) U/L Troponin I High Sens < 3.5 (<3.5-17.0) ng/L Total Protein 7.7 (6.5-8.0) g/dL Albumin 4.3 (3.5-5.0) g/dL Lipase 16 (8-78) U/L Urine Color Urine Appearance Urine pH (5.0-9.0) Ur Specific [place] (1.005-1.025) Urine Protein (Neg-Trace) mg/dL Urine Glucose (UA) (Negative) mg/dL Urine Ketones (Negative) mg/dL Urine Blood (Negative) Urine Nitrite (Negative) Ur Leukocyte Esterase (Negative) Urine Test (NEGATIVE) COVID-19 (REZA) (Negative) COVID-19 Clin Com Influenza Type A (SWAPNA) (Negative) Influenza Type B (SWAPNA) (Negative) Influenza A & B Note 03/30/22 03/30/22 03/30/22 Range/Units 15:43 15:43 15:43 WBC (4.8-10.8) X10*3/uL RBC (4.20-5.50) X10*6/uL Hgb (12.0-16.0) g/dl Hct (37.0-47.0) % MCV (80.0-98.0) fL MCH (27.0-33.0) pg MCHC (31.0-35.0) g/dl RDW (11.0-16.0) % Plt Count (160-400) X10*3/uL MPV (9.4-12.3) fL Immature Gran % (Auto) (0.0-0.4) % Neut % (Auto) (45-73) % Lymph % (Auto) (20-40) % [place] % (Auto) (2-11) % Eos % (Auto) (0-4) % Baso % (Auto) (0-2) % Lymph # (Auto) (1.2-4.9) X10*3/uL [place] # (Auto) (0.1-1.2) X10*3/uL Eos # (Auto) (0.0-0.4) X10*3/uL Baso # (Auto) (0.0-0.2) X10*3/uL Abs Immat Gran (auto) (0.00-0.03) X10*3/uL Absolute Neuts (auto) (2.0-8.3) x10*3/uL Absolute Nucleated RBC (0.0-0.012) X10*3/uL Nucleated RBC % (auto) (0.0-0.2) /100WBC PT 13.8 H (10.0-13.1) SEC INR 1.2 H (0.9-1.1) APTT 34.5 (26.0-36.4) SEC Sodium (135-145) mmol/L Potassium (3.3-5.1) mmol/L Chloride (96-108) mmol/L Carbon Dioxide (22-29) mmol/L Anion Gap (12-20) BUN (9-16) mg/dL Creatinine (0.5-1.4) mg/dL Estim Creat Clear Calc Estimated GFR Random Glucose (60-115) mg/dL Calcium (8.4-10.2) mg/dL Magnesium (1.6-2.6) mg/dL Total Bilirubin (0.0-1.0) mg/dL Direct Bilirubin (0.0-0.5) mg/dL AST (5-31) U/L ALT (0-31) U/L Alkaline Phosphatase (39-117) U/L Troponin I High Sens (<3.5-17.0) ng/L Total Protein (6.5-8.0) g/dL Albumin (3.5-5.0) g/dL Lipase (8-78) U/L Urine Color Urine Appearance Urine pH (5.0-9.0) Ur Specific [place] (1.005-1.025) Urine Protein (Neg-Trace) mg/dL Urine Glucose (UA) (Negative) mg/dL Urine Ketones (Negative) mg/dL Urine Blood (Negative) Urine Nitrite (Negative) Ur Leukocyte Esterase (Negative) Urine Test (NEGATIVE) COVID-19 (REZA) Negative (Negative) COVID-19 Clin Com See Note Influenza Type A (SWAPNA) Negative (Negative) Influenza Type B (SWAPNA) Negative (Negative) Influenza A & B Note See Note 03/30/22 03/30/22 Range/Units 17:54 17:54 WBC (4.8-10.8) X10*3/uL RBC (4.20-5.50) X10*6/uL Hgb (12.0-16.0) g/dl Hct (37.0-47.0) % MCV (80.0-98.0) fL MCH (27.0-33.0) pg MCHC (31.0-35.0) g/dl RDW (11.0-16.0) % Plt Count (160-400) X10*3/uL MPV (9.4-12.3) fL Immature Gran % (Auto) (0.0-0.4) % Neut % (Auto) (45-73) % Lymph % (Auto) (20-40) % [place] % (Auto) (2-11) % Eos % (Auto) (0-4) % Baso % (Auto) (0-2) % Lymph # (Auto) (1.2-4.9) X10*3/uL [place] # (Auto) (0.1-1.2) X10*3/uL Eos # (Auto) (0.0-0.4) X10*3/uL Baso # (Auto) (0.0-0.2) X10*3/uL Abs Immat Gran (auto) (0.00-0.03) X10*3/uL Absolute Neuts (auto) (2.0-8.3) x10*3/uL Absolute Nucleated RBC (0.0-0.012) X10*3/uL Nucleated RBC % (auto) (0.0-0.2) /100WBC PT (10.0-13.1) SEC INR (0.9-1.1) APTT (26.0-36.4) SEC Sodium (135-145) mmol/L Potassium (3.3-5.1) mmol/L Chloride (96-108) mmol/L Carbon Dioxide (22-29) mmol/L Anion Gap (12-20) BUN (9-16) mg/dL Creatinine (0.5-1.4) mg/dL Estim Creat Clear Calc Estimated GFR Random Glucose (60-115) mg/dL Calcium (8.4-10.2) mg/dL Magnesium (1.6-2.6) mg/dL Total Bilirubin (0.0-1.0) mg/dL Direct Bilirubin (0.0-0.5) mg/dL AST (5-31) U/L ALT (0-31) U/L Alkaline Phosphatase (39-117) U/L Troponin I High Sens (<3.5-17.0) ng/L Total Protein (6.5-8.0) g/dL Albumin (3.5-5.0) g/dL Lipase (8-78) U/L Urine Color Yellow Urine Appearance Clear Urine pH 5.5 (5.0-9.0) Ur Specific [place] 1.025 (1.005-1.025) Urine Protein Negative (Neg-Trace) mg/dL Urine Glucose (UA) Negative (Negative) mg/dL Urine Ketones 40 (Negative) mg/dL Urine Blood Negative (Negative) Urine Nitrite Negative (Negative) Ur Leukocyte Esterase Negative (Negative) Urine Test NEGATIVE (NEGATIVE) COVID-19 (REZA) (Negative) COVID-19 Clin Com Influenza Type A (SWAPNA) (Negative) Influenza Type B (SWAPNA) (Negative) Influenza A & B Note <JAKE Villa - Last Filed: 03/30/22 15:05> Lab Results 03/30/22 03/30/22 03/30/22 Range/Units 15:43 15:43 15:43 WBC 8.6 (4.8-10.8) X10*3/uL RBC 4.95 (4.20-5.50) X10*6/uL Hgb 13.4 (12.0-16.0) g/dl Hct 40.1 (37.0-47.0) % MCV 81.0 (80.0-98.0) fL MCH 27.1 (27.0-33.0) pg MCHC 33.4 (31.0-35.0) g/dl RDW 12.8 (11.0-16.0) % Plt Count 173 (160-400) X10*3/uL MPV 10.6 (9.4-12.3) fL Immature Gran % (Auto) 0.3 (0.0-0.4) % Neut % (Auto) 89.8 H (45-73) % Lymph % (Auto) 5.1 L (20-40) % [place] % (Auto) 4.5 (2-11) % Eos % (Auto) 0.1 (0-4) % Baso % (Auto) 0.2 (0-2) % Lymph # (Auto) 0.4 L (1.2-4.9) X10*3/uL [place] # (Auto) 0.4 (0.1-1.2) X10*3/uL Eos # (Auto) 0.0 (0.0-0.4) X10*3/uL Baso # (Auto) 0.0 (0.0-0.2) X10*3/uL Abs Immat Gran (auto) 0.03 (0.00-0.03) X10*3/uL Absolute Neuts (auto) 7.7 (2.0-8.3) x10*3/uL Absolute Nucleated RBC 0.000 (0.0-0.012) X10*3/uL Nucleated RBC % (auto) 0.0 (0.0-0.2) /100WBC PT (10.0-13.1) SEC INR (0.9-1.1) APTT (26.0-36.4) SEC Sodium 140 (135-145) mmol/L Potassium 4.0 (3.3-5.1) mmol/L Chloride 106 (96-108) mmol/L Carbon Dioxide 25 (22-29) mmol/L Anion Gap 13 (12-20) BUN 14 (9-16) mg/dL Creatinine 0.79 (0.5-1.4) mg/dL Estim Creat Clear Calc 106.9 Estimated GFR > 60 Random Glucose 91 (60-115) mg/dL Calcium 8.7 (8.4-10.2) mg/dL Magnesium 1.7 (1.6-2.6) mg/dL Total Bilirubin 2.0 H (0.0-1.0) mg/dL Direct Bilirubin 0.6 H (0.0-0.5) mg/dL AST 27 (5-31) U/L ALT 29 (0-31) U/L Alkaline Phosphatase 83 (39-117) U/L Troponin I High Sens < 3.5 (<3.5-17.0) ng/L Total Protein 7.7 (6.5-8.0) g/dL Albumin 4.3 (3.5-5.0) g/dL Lipase 16 (8-78) U/L Urine Color Urine Appearance Urine pH (5.0-9.0) Ur Specific [place] (1.005-1.025) Urine Protein (Neg-Trace) mg/dL Urine Glucose (UA) (Negative) mg/dL Urine Ketones (Negative) mg/dL Urine Blood (Negative) Urine Nitrite (Negative) Ur Leukocyte Esterase (Negative) Urine Test (NEGATIVE) COVID-19 (REZA) (Negative) COVID-19 Clin Com Influenza Type A (SWAPNA) (Negative) Influenza Type B (SWAPNA) (Negative) Influenza A & B Note 03/30/22 03/30/22 03/30/22 Range/Units 15:43 15:43 15:43 WBC (4.8-10.8) X10*3/uL RBC (4.20-5.50) X10*6/uL Hgb (12.0-16.0) g/dl Hct (37.0-47.0) % MCV (80.0-98.0) fL MCH (27.0-33.0) pg MCHC (31.0-35.0) g/dl RDW (11.0-16.0) % Plt Count (160-400) X10*3/uL MPV (9.4-12.3) fL Immature Gran % (Auto) (0.0-0.4) % Neut % (Auto) (45-73) % Lymph % (Auto) (20-40) % [place] % (Auto) (2-11) % Eos % (Auto) (0-4) % Baso % (Auto) (0-2) % Lymph # (Auto) (1.2-4.9) X10*3/uL [place] # (Auto) (0.1-1.2) X10*3/uL Eos # (Auto) (0.0-0.4) X10*3/uL Baso # (Auto) (0.0-0.2) X10*3/uL Abs Immat Gran (auto) (0.00-0.03) X10*3/uL Absolute Neuts (auto) (2.0-8.3) x10*3/uL Absolute Nucleated RBC (0.0-0.012) X10*3/uL Nucleated RBC % (auto) (0.0-0.2) /100WBC PT 13.8 H (10.0-13.1) SEC INR 1.2 H (0.9-1.1) APTT 34.5 (26.0-36.4) SEC Sodium (135-145) mmol/L Potassium (3.3-5.1) mmol/L Chloride (96-108) mmol/L Carbon Dioxide (22-29) mmol/L Anion Gap (12-20) BUN (9-16) mg/dL Creatinine (0.5-1.4) mg/dL Estim Creat Clear Calc Estimated GFR Random Glucose (60-115) mg/dL Calcium (8.4-10.2) mg/dL Magnesium (1.6-2.6) mg/dL Total Bilirubin (0.0-1.0) mg/dL Direct Bilirubin (0.0-0.5) mg/dL AST (5-31) U/L ALT (0-31) U/L Alkaline Phosphatase (39-117) U/L Troponin I High Sens (<3.5-17.0) ng/L Total Protein (6.5-8.0) g/dL Albumin (3.5-5.0) g/dL Lipase (8-78) U/L Urine Color Urine Appearance Urine pH (5.0-9.0) Ur Specific [place] (1.005-1.025) Urine Protein (Neg-Trace) mg/dL Urine Glucose (UA) (Negative) mg/dL Urine Ketones (Negative) mg/dL Urine Blood (Negative) Urine Nitrite (Negative) Ur Leukocyte Esterase (Negative) Urine Test (NEGATIVE) COVID-19 (REZA) Negative (Negative) COVID-19 Clin Com See Note Influenza Type A (SWAPNA) Negative (Negative) Influenza Type B (SWAPNA) Negative (Negative) Influenza A & B Note See Note 03/30/22 03/30/22 Range/Units 17:54 17:54 WBC (4.8-10.8) X10*3/uL RBC (4.20-5.50) X10*6/uL Hgb (12.0-16.0) g/dl Hct (37.0-47.0) % MCV (80.0-98.0) fL MCH (27.0-33.0) pg MCHC (31.0-35.0) g/dl RDW (11.0-16.0) % Plt Count (160-400) X10*3/uL MPV (9.4-12.3) fL Immature Gran % (Auto) (0.0-0.4) % Neut % (Auto) (45-73) % Lymph % (Auto) (20-40) % [place] % (Auto) (2-11) % Eos % (Auto) (0-4) % Baso % (Auto) (0-2) % Lymph # (Auto) (1.2-4.9) X10*3/uL [place] # (Auto) (0.1-1.2) X10*3/uL Eos # (Auto) (0.0-0.4) X10*3/uL Baso # (Auto) (0.0-0.2) X10*3/uL Abs Immat Gran (auto) (0.00-0.03) X10*3/uL Absolute Neuts (auto) (2.0-8.3) x10*3/uL Absolute Nucleated RBC (0.0-0.012) X10*3/uL Nucleated RBC % (auto) (0.0-0.2) /100WBC PT (10.0-13.1) SEC INR (0.9-1.1) APTT (26.0-36.4) SEC Sodium (135-145) mmol/L Potassium (3.3-5.1) mmol/L Chloride (96-108) mmol/L Carbon Dioxide (22-29) mmol/L Anion Gap (12-20) BUN (9-16) mg/dL Creatinine (0.5-1.4) mg/dL Estim Creat Clear Calc Estimated GFR Random Glucose (60-115) mg/dL Calcium (8.4-10.2) mg/dL Magnesium (1.6-2.6) mg/dL Total Bilirubin (0.0-1.0) mg/dL Direct Bilirubin (0.0-0.5) mg/dL AST (5-31) U/L ALT (0-31) U/L Alkaline Phosphatase (39-117) U/L Troponin I High Sens (<3.5-17.0) ng/L Total Protein (6.5-8.0) g/dL Albumin (3.5-5.0) g/dL Lipase (8-78) U/L Urine Color Yellow Urine Appearance Clear Urine pH 5.5 (5.0-9.0) Ur Specific [place] 1.025 (1.005-1.025) Urine Protein Negative (Neg-Trace) mg/dL Urine Glucose (UA) Negative (Negative) mg/dL Urine Ketones 40 (Negative) mg/dL Urine Blood Negative (Negative) Urine Nitrite Negative (Negative) Ur Leukocyte Esterase Negative (Negative) Urine Test NEGATIVE (NEGATIVE) COVID-19 (REZA) (Negative) COVID-19 Clin Com Influenza Type A (SWAPNA) (Negative) Influenza Type B (SWAPNA) (Negative) Influenza A & B Note <Shin Lala MD - Last Filed: 03/30/22 22:49> Independent Interpretation I performed an independent interpretation of an: EKG <Shin Lala MD - Last Filed: 03/30/22 22:49> Interpretation: Sinus tachycardia with a rate of 124. No ST elevation or depression. Normal QRS axis. Incomplete right bundle-branch block. <Shin Lala MD - Last Filed: 03/30/22 22:49> Radiology Impression Discussion of test interpretation with radiology: I have reviewed the radiologist's reading. <Shin Lala MD - Last Filed: 03/30/22 22:49> Radiologist Impression: Chest x-ray: IMPRESSION: Unremarkable examination. <Shin Lala MD - Last Filed: 03/30/22 22:49> Discharge Plan Discharge Clinical Impression: Fever, Vomiting, Acute viral syndrome <JAKE Villa - Last Filed: 03/30/22 15:05> Patient Disposition: Home, Self-Care <JAKE Villa - Last Filed: 03/30/22 15:05> Instructions: Fever in Adults (ED), Acute Nausea and Vomiting (ED), Viral Syndrome (ED) <JAKE Villa - Last Filed: 03/30/22 15:05> Additional Instructions: Use ondansetron as prescribed for nausea and vomiting. Use acetaminophen for fever. Drink plenty of fluids. Return for any new or worsened symptoms such as progressive abdominal pain, increased vomiting of blood. Follow up your primary care physician <JAKE Villa - Last Filed: 03/30/22 15:05> Prescriptions: New ondansetron 4 mg tablet,disintegrating 4 mg PO Q6H PRN (Reason: nausea and vomiting) Qty: 8 0RF No Action ibuprofen 600 mg tablet 600 mg PO Q6-8H PRN (Reason: pain) Qty: 40 0RF levothyroxine 25 mcg tablet 25 mcg PO DAILY <JAKE Villa - Last Filed: 03/30/22 15:05>
[2022-03-30 15:48] LABS: MANUAL DIFF FLAG NO
--- NOTE | 2022-03-30 15:49 | ED_ITS ---
HPI - Chest Pain General Chief Complaint: Chest Pain Stated Complaint: Chest pain/Vomiting blood Time Seen by Provider: 03/30/22 15:41 Source: patient Limitations: no limitations History of Present Illness HPI narrative: This is a 26-year-old female who complains of chest pain that began yesterday which was associated with a headache. The patient later developed nausea and vomiting and saw streaks of blood in her vomitus. This morning the patient again had episodes of vomiting and saw small flecks of blood. She has had several episodes of vomiting today, but no diarrhea. The patient has not been able to hold down much in the way of fluids and has not urinated today. She had not noted a fever until she had it measured here. Her headache is now gone. She denies any neck stiffness. She denies any rhinorrhea or sore throat. Denies any cough, does feel little short of breath. She denies abdominal pain at rest, does have abdominal pain with vomiting. She denies any dysuria or urinary frequency. Related Data Home Medications Medication Instructions Recorded Confirmed levothyroxine 25 mcg tablet 25 mcg PO DAILY 11/12/21 Previous Rx's Medication Instructions Recorded ibuprofen 600 mg tablet 600 mg PO Q6-8H PRN pain #40 tabs 08/14/21 ondansetron 4 mg disintegrating 4 mg PO Q6H PRN nausea and 03/30/22 tablet vomiting #8 tabs Allergies Allergy/AdvReac Type Severity Reaction Status Date / Time No Known Allergies Allergy Verified 03/30/22 15:04 [No Known Allergies*] Review of Systems Review of Systems: As per [facility] Past Medical History Medical History (Updated 03/31/22 @ 00:01 by Abdi Hess) Carpal tunnel syndrome No known health problems Surgical History History of abdominal surgery History of breast augmentation History of eye surgery History of lumpectomy Hx of wisdom tooth extraction Social History Social History (Updated 03/24/22 @ 10:06 by NAYLA Brandt) Alcohol intake: never Patient Tobacco Use Status: Never used Tobacco Smoked in Last 30 Days: No Use of substances other than those prescribed or required for medical reasons: No Advance Directives: No Advance Directives Information Provided: Yes Patient : No Current occupational status: unemployed Current occupation: left hand Physical Exam Vital Signs: Vital Signs: Last Vital Signs Temp 100.1 F 03/30/22 21:52 Pulse 97 03/30/22 21:52 Resp 16 03/30/22 21:52 BP 110/67 03/30/22 21:52 Pulse Ox 98 03/30/22 21:52 O2 Del Method 03/30/22 21:52 BMI result Body Mass Index 24.3 Const: Other: PERRLA Conj [place] Mucous membranes moist Throat clear Neck supple Lungs CTA Heart tachycardic RR no murmurs rubs or gallops Abd soft, non tender, non distended Extremities no pitting edema Neuro alert and oriented x 3, non focal Medications Administered Discontinued Medications Generic Name Dose Route Start Last Admin Trade Name Freq PRN Reason Stop Dose Admin Acetaminophen 650 mg 03/30/22 17:29 03/30/22 18:35 Acetaminophen 325 Mg Tablet PO 03/30/22 17:30 650 mg ONCE ONE Administration Sodium Chloride 1,000 mls @ 999 mls/hr 03/30/22 16:00 03/30/22 17:00 Ns IV 03/30/22 17:00 Infused .Q1H1M JOAO Infusion Sodium Chloride 1,000 mls @ 999 mls/hr 03/30/22 18:45 03/30/22 19:50 Ns IV 03/30/22 19:45 Infused .Q1H1M JOAO Infusion Sodium Chloride 1,000 mls @ 999 mls/hr 03/30/22 21:00 03/30/22 22:05 Ns IV 03/30/22 22:00 Infused .Q1H1M JOAO Infusion Ketorolac Tromethamine 15 mg 03/30/22 22:24 03/30/22 22:32 Ketorolac Tromethamine 15 Mg/Ml Vial IVPUSH 03/30/22 22:25 15 mg ONCE ONE Administration Lorazepam 1 mg 03/30/22 22:24 03/30/22 22:32 Lorazepam 2 Mg/Ml Vial IVPUSH 03/30/22 22:25 1 mg ONCE ONE Administration Ondansetron HCl 4 mg 03/30/22 15:47 03/30/22 15:53 Ondansetron Hcl 4 Mg/2 Ml Vial IVPUSH 03/30/22 15:48 4 mg ONCE ONE Administration Medical Decision Making Medical Decision Making [facility] Narrative: Patient with a complaint of chest pain and headache that began the day before presentation, progressed to vomiting, with multiple episodes of on the day of presentation. Patient also had a fever to 102 was tachycardic. Patient was hydrated with normal saline times total 3 L as after each L she was still tachycardic and with a borderline blood pressure in the 90s. Her blood pressure following did come up to 110 systolic with a heart rate in the 90s she felt much better. She was treated with Zofran 4 mg IV, acetaminophen 650 mg p.o. for fever, later ketorolac 50 mg IV and lorazepam 1 mg IV. She did defervesce. EKG showed a sinus tachycardia but no other concerning findings. Chest x-ray is negative. The patient had no evidence of bacterial infection, with a normal white blood cell count, negative chest x-ray, negative urinalysis, no clinical evidence of meningitis, no cellulitis. Test for COVID and influenza were negative. Patient likely has a viral syndrome. Differential Diagnosis Differential Diagnoses: The differential diagnosis associated with the presentation includes Viral syndrome, dehydration, gastritis, appendicitis, pyelonephritis Lab Data MDM Lab Attestation statement: I reviewed the patient's lab results. 03/30/22 15:43 03/30/22 15:43 Labs: Lab Results 03/30/22 03/30/22 03/30/22 Range/Units 15:43 15:43 15:43 WBC 8.6 (4.8-10.8) X10*3/uL RBC 4.95 (4.20-5.50) X10*6/uL Hgb 13.4 (12.0-16.0) g/dl Hct 40.1 (37.0-47.0) % MCV 81.0 (80.0-98.0) fL MCH 27.1 (27.0-33.0) pg MCHC 33.4 (31.0-35.0) g/dl RDW 12.8 (11.0-16.0) % Plt Count 173 (160-400) X10*3/uL MPV 10.6 (9.4-12.3) fL Immature Gran % (Auto) 0.3 (0.0-0.4) % Neut % (Auto) 89.8 H (45-73) % Lymph % (Auto) 5.1 L (20-40) % [place] % (Auto) 4.5 (2-11) % Eos % (Auto) 0.1 (0-4) % Baso % (Auto) 0.2 (0-2) % Lymph # (Auto) 0.4 L (1.2-4.9) X10*3/uL [place] # (Auto) 0.4 (0.1-1.2) X10*3/uL Eos # (Auto) 0.0 (0.0-0.4) X10*3/uL Baso # (Auto) 0.0 (0.0-0.2) X10*3/uL Abs Immat Gran (auto) 0.03 (0.00-0.03) X10*3/uL Absolute Neuts (auto) 7.7 (2.0-8.3) x10*3/uL Absolute Nucleated RBC 0.000 (0.0-0.012) X10*3/uL Nucleated RBC % (auto) 0.0 (0.0-0.2) /100WBC PT (10.0-13.1) SEC INR (0.9-1.1) APTT (26.0-36.4) SEC Sodium 140 (135-145) mmol/L Potassium 4.0 (3.3-5.1) mmol/L Chloride 106 (96-108) mmol/L Carbon Dioxide 25 (22-29) mmol/L Anion Gap 13 (12-20) BUN 14 (9-16) mg/dL Creatinine 0.79 (0.5-1.4) mg/dL Estim Creat Clear Calc 106.9 Estimated GFR > 60 Random Glucose 91 (60-115) mg/dL Calcium 8.7 (8.4-10.2) mg/dL Magnesium 1.7 (1.6-2.6) mg/dL Total Bilirubin 2.0 H (0.0-1.0) mg/dL Direct Bilirubin 0.6 H (0.0-0.5) mg/dL AST 27 (5-31) U/L ALT 29 (0-31) U/L Alkaline Phosphatase 83 (39-117) U/L Troponin I High Sens < 3.5 (<3.5-17.0) ng/L Total Protein 7.7 (6.5-8.0) g/dL Albumin 4.3 (3.5-5.0) g/dL Lipase 16 (8-78) U/L Urine Color Urine Appearance Urine pH (5.0-9.0) Ur Specific [place] (1.005-1.025) Urine Protein (Neg-Trace) mg/dL Urine Glucose (UA) (Negative) mg/dL Urine Ketones (Negative) mg/dL Urine Blood (Negative) Urine Nitrite (Negative) Ur Leukocyte Esterase (Negative) Urine Test (NEGATIVE) COVID-19 (REZA) (Negative) COVID-19 Clin Com Influenza Type A (SWAPNA) (Negative) Influenza Type B (SWAPNA) (Negative) Influenza A & B Note 03/30/22 03/30/22 03/30/22 Range/Units 15:43 15:43 15:43 WBC (4.8-10.8) X10*3/uL RBC (4.20-5.50) X10*6/uL Hgb (12.0-16.0) g/dl Hct (37.0-47.0) % MCV (80.0-98.0) fL MCH (27.0-33.0) pg MCHC (31.0-35.0) g/dl RDW (11.0-16.0) % Plt Count (160-400) X10*3/uL MPV (9.4-12.3) fL Immature Gran % (Auto) (0.0-0.4) % Neut % (Auto) (45-73) % Lymph % (Auto) (20-40) % [place] % (Auto) (2-11) % Eos % (Auto) (0-4) % Baso % (Auto) (0-2) % Lymph # (Auto) (1.2-4.9) X10*3/uL [place] # (Auto) (0.1-1.2) X10*3/uL Eos # (Auto) (0.0-0.4) X10*3/uL Baso # (Auto) (0.0-0.2) X10*3/uL Abs Immat Gran (auto) (0.00-0.03) X10*3/uL Absolute Neuts (auto) (2.0-8.3) x10*3/uL Absolute Nucleated RBC (0.0-0.012) X10*3/uL Nucleated RBC % (auto) (0.0-0.2) /100WBC PT 13.8 H (10.0-13.1) SEC INR 1.2 H (0.9-1.1) APTT 34.5 (26.0-36.4) SEC Sodium (135-145) mmol/L Potassium (3.3-5.1) mmol/L Chloride (96-108) mmol/L Carbon Dioxide (22-29) mmol/L Anion Gap (12-20) BUN (9-16) mg/dL Creatinine (0.5-1.4) mg/dL Estim Creat Clear Calc Estimated GFR Random Glucose (60-115) mg/dL Calcium (8.4-10.2) mg/dL Magnesium (1.6-2.6) mg/dL Total Bilirubin (0.0-1.0) mg/dL Direct Bilirubin (0.0-0.5) mg/dL AST (5-31) U/L ALT (0-31) U/L Alkaline Phosphatase (39-117) U/L Troponin I High Sens (<3.5-17.0) ng/L Total Protein (6.5-8.0) g/dL Albumin (3.5-5.0) g/dL Lipase (8-78) U/L Urine Color Urine Appearance Urine pH (5.0-9.0) Ur Specific [place] (1.005-1.025) Urine Protein (Neg-Trace) mg/dL Urine Glucose (UA) (Negative) mg/dL Urine Ketones (Negative) mg/dL Urine Blood (Negative) Urine Nitrite (Negative) Ur Leukocyte Esterase (Negative) Urine Test (NEGATIVE) COVID-19 (REZA) Negative (Negative) COVID-19 Clin Com See Note Influenza Type A (SWAPNA) Negative (Negative) Influenza Type B (SWAPNA) Negative (Negative) Influenza A & B Note See Note 03/30/22 03/30/22 Range/Units 17:54 17:54 WBC (4.8-10.8) X10*3/uL RBC (4.20-5.50) X10*6/uL Hgb (12.0-16.0) g/dl Hct (37.0-47.0) % MCV (80.0-98.0) fL MCH (27.0-33.0) pg MCHC (31.0-35.0) g/dl RDW (11.0-16.0) % Plt Count (160-400) X10*3/uL MPV (9.4-12.3) fL Immature Gran % (Auto) (0.0-0.4) % Neut % (Auto) (45-73) % Lymph % (Auto) (20-40) % [place] % (Auto) (2-11) % Eos % (Auto) (0-4) % Baso % (Auto) (0-2) % Lymph # (Auto) (1.2-4.9) X10*3/uL [place] # (Auto) (0.1-1.2) X10*3/uL Eos # (Auto) (0.0-0.4) X10*3/uL Baso # (Auto) (0.0-0.2) X10*3/uL Abs Immat Gran (auto) (0.00-0.03) X10*3/uL Absolute Neuts (auto) (2.0-8.3) x10*3/uL Absolute Nucleated RBC (0.0-0.012) X10*3/uL Nucleated RBC % (auto) (0.0-0.2) /100WBC PT (10.0-13.1) SEC INR (0.9-1.1) APTT (26.0-36.4) SEC Sodium (135-145) mmol/L Potassium (3.3-5.1) mmol/L Chloride (96-108) mmol/L Carbon Dioxide (22-29) mmol/L Anion Gap (12-20) BUN (9-16) mg/dL Creatinine (0.5-1.4) mg/dL Estim Creat Clear Calc Estimated GFR Random Glucose (60-115) mg/dL Calcium (8.4-10.2) mg/dL Magnesium (1.6-2.6) mg/dL Total Bilirubin (0.0-1.0) mg/dL Direct Bilirubin (0.0-0.5) mg/dL AST (5-31) U/L ALT (0-31) U/L Alkaline Phosphatase (39-117) U/L Troponin I High Sens (<3.5-17.0) ng/L Total Protein (6.5-8.0) g/dL Albumin (3.5-5.0) g/dL Lipase (8-78) U/L Urine Color Yellow Urine Appearance Clear Urine pH 5.5 (5.0-9.0) Ur Specific [place] 1.025 (1.005-1.025) Urine Protein Negative (Neg-Trace) mg/dL Urine Glucose (UA) Negative (Negative) mg/dL Urine Ketones 40 (Negative) mg/dL Urine Blood Negative (Negative) Urine Nitrite Negative (Negative) Ur Leukocyte Esterase Negative (Negative) Urine Test NEGATIVE (NEGATIVE) COVID-19 (REZA) (Negative) COVID-19 Clin Com Influenza Type A (SWAPNA) (Negative) Influenza Type B (SWAPNA) (Negative) Influenza A & B Note Independent Interpretation I performed an independent interpretation of an: EKG Interpretation: Sinus tachycardia with a rate of 124. Incomplete right bundle-branch block. No lata ST elevation or depression. No ectopy. Radiology Impression Discussion of test interpretation with radiology: I have reviewed the radiologist's reading. Radiologist Impression: Chest x-ray: No acute pulmonary disease Tests considered The following testing was considered but not selected: CT of the brain, however patient's headache had resolved Discharge Plan Discharge Clinical Impression: Fever, Vomiting, Acute viral syndrome Patient Disposition: Home, Self-Care Instructions: Fever in Adults (ED), Acute Nausea and Vomiting (ED), Viral Syndrome (ED) Additional Instructions: Use ondansetron as prescribed for nausea and vomiting. Use acetaminophen for fever. Drink plenty of fluids. Return for any new or worsened symptoms such as progressive abdominal pain, increased vomiting of blood. Follow up your primary care physician Prescriptions: New ondansetron 4 mg tablet,disintegrating 4 mg PO Q6H PRN (Reason: nausea and vomiting) Qty: 8 0RF No Action ibuprofen 600 mg tablet 600 mg PO Q6-8H PRN (Reason: pain) Qty: 40 0RF levothyroxine 25 mcg tablet 25 mcg PO DAILY Interventions: ED Discharge Assessment Last Done: 03/30/22 23:57 Discharge Date/Time: 03/30/22 23:57
[2022-03-30] MEDS: 0.9 % Sodium Chloride 1,000 ML 999 ML IV ×3 (15:53→21:03)
[2022-03-30] MEDS: ondansetron HCL 4 MG/2 ML VIAL IVPUSH (15:53)
[2022-03-30 15:56] LABS: Basophils Percent Auto 0.2 % (0-2); Eosinophils Percent Auto 0.1 % (0-4); Hematocrit 40.1 % (37.0-47.0); Hemoglobin 13.4 g/dl (12.0-16.0); Imm Gran Abs Auto 0.03 X10*3/uL (0.00-0.03); Imm Gran Pct Auto 0.3 % (0.0-0.4); Lymphocytes Absolute Auto 0.4 X10*3/uL (1.2-4.9); Lymphocytes Percent Auto 5.1 % (20-40); Mean Corpuscular HGB Conc 33.4 g/dl (31.0-35.0); Mean Corpuscular Hemoglobin 27.1 pg (27.0-33.0); Mean Platelet Volume 10.6 fL (9.4-12.3); Monocytes Absolute Auto 0.4 X10*3/uL (0.1-1.2); Monocytes Percent Auto 4.5 % (2-11); Neutrophils Absolute Auto 7.7 x10*3/uL (2.0-8.3); Neutrophils Percent Auto 89.8 % (45-73); Platelet Count 173 X10*3/uL (160-400); Red Blood Count 4.95 X10*6/uL (4.20-5.50); Red Cell Distribution Width 12.8 % (11.0-16.0); White Blood Count 8.6 X10*3/uL (4.8-10.8)
[2022-03-30 16:04] LABS: INTERNATIONAL NORM RATIO 1.2 (0.9-1.1); Prothrombin Time 13.8 SEC (10.0-13.1)
[2022-03-30 16:07] LABS: Partial Thromboplastin Time 34.5 SEC (26.0-36.4)
[2022-03-30 16:09] LABS: COVID-19 Test Negative (Negative); IDNOW Serial# 16C4AD1C; IDNOW Serial# BCCEAD1C; Influenza A Negative (Negative); Influenza B2 Negative (Negative)
[2022-03-30 16:17] LABS: Alanine Aminotransferase 29 U/L (0-31); Albumin Level 4.3 g/dL (3.5-5.0); Alkaline Phosphatase 83 U/L (39-117); Anion Gap 13 (12-20); Aspartate Amino Transferase 27 U/L (5-31); Bilirubin Direct 0.6 mg/dL (0.0-0.5); Blood Urea Nitrogen 14 mg/dL (9-16); Calcium 8.7 mg/dL (8.4-10.2); Carbon Dioxide 25 mmol/L (22-29); Chloride 106 mmol/L (96-108); Creatinine Clr Calc Pharmacy 106.9; Estimated Glomerular Filt Rate > 60; Glucose Random 91 mg/dL (60-115); Lipase 16 U/L (8-78); Magnesium 1.7 mg/dL (1.6-2.6); Sodium 140 mmol/L (135-145); Total Protein 7.7 g/dL (6.5-8.0)
[2022-03-30 16:25] LABS: Troponin-I High Sensitivity < 3.5 ng/L (<3.5-17.0)
[2022-03-30 18:00] LABS: Appearance Urine Clear; Color Urine Yellow; Glucose Urine UA Negative (Negative); Leukocyte Esterase Urine Negative (Negative); Nitrite Urine Negative (Negative); PH 5.5 (5.0-9.0); Specific Gravity - Urine 1.025 (1.005-1.025); Urine Blood Negative (Negative); Urine Ketones 40 mg/dL (Negative); Urine Protein Negative (Neg-Trace)
[2022-03-30 18:02] LABS: UPreg QC Valid YES; Urine Pregnancy NEGATIVE (NEGATIVE)
[2022-03-30] MEDS: Acetaminophen 325 MG TABLET 650 MG PO (18:35)
--- NOTE | 2022-03-30 18:45 | PC.NURSE ---
patient a&ox3, residential monitor intact sinus tach on monitor, ivf running per order,pt medicated per order, call centeno within reach, will continue to monitor
--- NOTE | 2022-03-30 20:59 | PC.NURSE ---
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 Pt was being d/c and this nurse too v/s an notice HR increase to 130 upon movement, provider was notified. PT has 3 bag IVF running.
[2022-03-30] MEDS: Ketorolac Tromethamine 15 MG/ML VIAL IVPUSH (22:32)
[2022-03-30] MEDS: LORazepam 2 MG/ML VIAL 1 MG IVPUSH (22:32)
--- NOTE | 2022-03-30 22:53 | PC.NURSE ---
Re-assessment: Upon d/c this nurse re-evaluate pt's orhtostatic and pt during re-positioning HR went to 140s. Pt has been given new meds.
--- NOTE | 2022-03-30 23:58 | PC.NURSE ---
D/C Assessment: Pt's BP has improved, Pt is sinus tachy when she gets up. provider has notified. PT was educated to return to the ER if s/s gets worst.
== END 2022-03-30 23:57 | disposition home or self-care (01) ==
PROVIDERS: Physician Assistant; Emergency Provider Emergency Medicine
DX: B34.9 Viral infection, unspecified (principal); R50.9 Fever, unspecified; R11.2 Nausea with vomiting, unspecified; R00.0 Tachycardia, unspecified; Z20.822 Contact with and (suspected) exposure to COVID-19; Z79.899 Other long term (current) drug therapy
CPT/HCPCS: 71045; 80048; 80076; 81003; 81025; 83690; 83735; 84484; 85025; 85610; 85730; 87502; 87635; 93005; 96361; 96374; 96375; 99285; J1885; J2060; J2405

== ENCOUNTER → 2022-04-03 13:51 | Outpatient (BNVA) | payer OTHER, SELFPAY | PROVIDERS: Visit Provider Internal Medicine | DX: M54.2 Cervicalgia (principal); M54.50 Low back pain, unspecified | CPT/HCPCS: 99214 ==

== ENCOUNTER → 2022-04-06 13:04 | Outpatient (BNVA) | payer OTHER, SELFPAY | PROVIDERS: Visit Provider Anesthesiology | DX: Z13.89 Encounter for screening for other disorder (principal) ==

== ENCOUNTER → 2022-04-07 08:00 | Outpatient (BNVA) | payer OTHER, SELFPAY | PROVIDERS: Visit Provider Internal Medicine | DX: F07.81 Postconcussional syndrome (principal); M25.532 Pain in left wrist; M54.2 Cervicalgia; R51.9 Headache, unspecified; M54.50 Low back pain, unspecified | CPT/HCPCS: 99215 ==

== ENCOUNTER → 2022-04-08 08:35 | Outpatient (BNVA) | payer OTHER, SELFPAY | PROVIDERS: Visit Provider Anesthesiology | DX: M47.816 Spondylosis without myelopathy or radiculopathy, lumbar region (principal); M47.812 Spondylosis without myelopathy or radiculopathy, cervical region | CPT/HCPCS: 99212 ==

== ENCOUNTER → 2022-04-28 14:57 | Outpatient (BNVA) | payer OTHER, SELFPAY | PROVIDERS: Visit Provider Internal Medicine | DX: S62.101D Fracture of unspecified carpal bone, right wrist, subsequent encounter for fracture with routine healing (principal); V89.2XXD Person injured in unspecified motor-vehicle accident, traffic, subsequent encounter | CPT/HCPCS: 99213 ==

== ENCOUNTER 2023-05-23 15:05 | Emergency (ER) | payer OTHER, SELFPAY ==
[2023-05-23 15:29] VITALS: BP 126/84; PULSE 98; RESP 16; TEMP 37.1; O2SAT 97; BMI 26.6
--- NOTE | 2023-05-23 15:30 | ED.GENADULT ---
HPI - General Adult General Chief complaint: Abdominal Pain Stated complaint: abd pain, headache, mult. comp: since plastic surg Related Data Home Medications Medication Instructions Recorded Confirmed levothyroxine 25 mcg tablet 25 mcg PO DAILY 11/12/21 04/08/22 Previous Rx's Medication Instructions Recorded ibuprofen 600 mg tablet 600 mg PO Q6-8H PRN pain #40 tabs 08/14/21 ondansetron 4 mg disintegrating 4 mg PO Q6H PRN nausea and 03/30/22 tablet vomiting #8 tabs Allergies Allergy/AdvReac Type Severity Reaction Status Date / Time No Known Allergies Allergy Verified 04/08/22 09:03 [No Known Allergies*] [facility] Past Medical History Medical History (Updated 05/25/23 @ 09:02 by Hoda Tyler NP) Carpal tunnel syndrome No known health problems Surgical History History of abdominal surgery History of breast augmentation History of lumpectomy Hx of wisdom tooth extraction History of eye surgery Social History Social History (Updated 03/24/22 @ 10:06 by Kavitha Blum [facility]) Alcohol intake: never Patient Tobacco Use Status: Never used Tobacco Advance Directives: No Advance Directives Information Provided: No Current occupational status: unemployed Current occupation: left hand Physical Exam ED Vital Signs: BMI result Body Mass Index 26.6 Course Course Course Narrative: This is a rapid medical exam: Additional HPI, ROS, PE not included below will be deferred to primary provider. Patient is a 27-year-old female with history of recent liposuction on 05/05 in [place] presenting to the ED with complaint of RLQ abdominal pain, lightheadedness, and right sided facial pain since yesterday. She called surgeon, Dr. Crooks, and was referred to the ED to rule out infection/anemia. Plan: labs, UA, viral swabs Medical Decision Making Lab Data 05/23/23 16:09 05/23/23 16:09 Labs: Lab Results 05/23/23 Range/Units 16:09 WBC 4.4 L (4.8-10.8) X10*3/uL RBC 4.22 (4.20-5.50) X10*6/uL Hgb 11.8 L (12.0-16.0) g/dl Hct 35.8 L (37.0-47.0) % MCV 84.8 (80.0-98.0) fL MCH 28.0 (27.0-33.0) pg MCHC 33.0 (31.0-35.0) g/dl RDW 14.0 (11.0-16.0) % Plt Count 243 D (160-400) X10*3/uL MPV 10.3 (9.4-12.3) fL Immature Gran % (Auto) 0.5 H (0.0-0.4) % Neut % (Auto) 56.1 (45-73) % Lymph % (Auto) 30.3 (20-40) % [place] % (Auto) 10.3 (2-11) % Eos % (Auto) 2.1 (0-4) % Baso % (Auto) 0.7 (0-2) % Lymph # (Auto) 1.3 (1.2-4.9) X10*3/uL [place] # (Auto) 0.5 (0.1-1.2) X10*3/uL Eos # (Auto) 0.1 (0.0-0.4) X10*3/uL Baso # (Auto) 0.0 (0.0-0.2) X10*3/uL Abs Immat Gran (auto) 0.02 (0.00-0.03) X10*3/uL Absolute Neuts (auto) 2.5 (2.0-8.3) x10*3/uL Absolute Nucleated RBC 0.000 (0.0-0.012) X10*3/uL Nucleated RBC % (auto) 0.0 (0.0-0.2) /100WBC Sodium 143 (135-145) mmol/L Potassium 4.9 (3.3-5.1) mmol/L Chloride 107 (96-108) mmol/L Carbon Dioxide 27 (22-29) mmol/L Anion Gap 14 (12-20) BUN 16 (9-16) mg/dL Creatinine 0.84 (0.5-1.4) mg/dL Estim Creat Clear Calc 105.7 Estimated GFR > 60 Random Glucose 84 (60-115) mg/dL Calcium 9.9 D (8.4-10.2) mg/dL Total Bilirubin 1.2 H (0.0-1.0) mg/dL AST 18 (5-31) U/L ALT 16 (0-31) U/L Alkaline Phosphatase 62 (39-117) U/L Total Protein 7.8 (6.5-8.0) g/dL Albumin 4.2 (3.5-5.0) g/dL Beta HCG, Quant < 2 mIU/mL Influenza Type A (PCR) NEGATIVE (Negative) Influenza Type B (PCR) NEGATIVE (Negative) RSV RNA Qual (PCR) NEGATIVE (Negative) SARS-CoV-2 RNA (RT-PCR) NEGATIVE (Negative) Discharge Plan Discharge Clinical Impression: Diagnosis unknown Patient Disposition: Left W/O Completing Treatment Prescriptions: No Action ibuprofen 600 mg tablet 600 mg PO Q6-8H PRN (Reason: pain) Qty: 40 0RF ondansetron 4 mg tablet,disintegrating 4 mg PO Q6H PRN (Reason: nausea and vomiting) Qty: 8 0RF levothyroxine 25 mcg tablet 25 mcg PO DAILY Discharge Date/Time: 05/23/23 17:23
[2023-05-23 16:12] LABS: MANUAL DIFF FLAG NO
[2023-05-23 16:26] LABS: Basophils Percent Auto 0.7 % (0-2); Eosinophils Absolute Auto 0.1 X10*3/uL (0.0-0.4); Eosinophils Percent Auto 2.1 % (0-4); Hematocrit 35.8 % (37.0-47.0); Hemoglobin 11.8 g/dl (12.0-16.0); Imm Gran Abs Auto 0.02 X10*3/uL (0.00-0.03); Imm Gran Pct Auto 0.5 % (0.0-0.4); Lymphocytes Absolute Auto 1.3 X10*3/uL (1.2-4.9); Lymphocytes Percent Auto 30.3 % (20-40); Mean Corpuscular Volume 84.8 fL (80.0-98.0); Mean Platelet Volume 10.3 fL (9.4-12.3); Monocytes Absolute Auto 0.5 X10*3/uL (0.1-1.2); Monocytes Percent Auto 10.3 % (2-11); Neutrophils Absolute Auto 2.5 x10*3/uL (2.0-8.3); Neutrophils Percent Auto 56.1 % (45-73); Platelet Count 243 X10*3/uL (160-400); Red Blood Count 4.22 X10*6/uL (4.20-5.50); White Blood Count 4.4 X10*3/uL (4.8-10.8)
[2023-05-23 16:42] LABS: Alanine Aminotransferase 16 U/L (0-31); Albumin Level 4.2 g/dL (3.5-5.0); Alkaline Phosphatase 62 U/L (39-117); Anion Gap 14 (12-20); Aspartate Amino Transferase 18 U/L (5-31); Bilirubin Total 1.2 mg/dL (0.0-1.0); Blood Urea Nitrogen 16 mg/dL (9-16); Calcium 9.9 mg/dL (8.4-10.2); Carbon Dioxide 27 mmol/L (22-29); Chloride 107 mmol/L (96-108); Creatinine Clr Calc Pharmacy 105.7; Estimated Glomerular Filt Rate > 60; Glucose Random 84 mg/dL (60-115); HCG Quantitative < 2 mIU/mL; Potassium 4.9 mmol/L (3.3-5.1); Sodium 143 mmol/L (135-145); Total Protein 7.8 g/dL (6.5-8.0)
[2023-05-23 16:50] LABS: Influenza A PCR NEGATIVE (Negative); Influenza B PCR NEGATIVE (Negative); Resp Syncy Virus RNA Qual PCR NEGATIVE (Negative); SARS COV2 PCR INHOUSE NEGATIVE (Negative)
== END 2023-05-23 17:23 | disposition left against medical advice (07) ==
PROVIDERS: Registered Nurse Emergency; Emergency Provider Emergency Medicine
DX: R10.9 Unspecified abdominal pain (principal); R51.9 Headache, unspecified; Z98.890 Other specified postprocedural states; Z11.52 Encounter for screening for COVID-19; Z20.828 Contact with and (suspected) exposure to other viral communicable diseases
CPT/HCPCS: 0241U; 80053; 84702; 85025; 99281; 99283